=== PATIENT | female | born 1995 | race African-American/Black ===

== ENCOUNTER 2019-04-09 21:28 | Emergency (ER) | payer BC, OTHER ==
[2019-04-09] MEDS ORDERED: KETOROLAC 30 MG/ML INJ ONE (22:49)
--- NOTE | 2019-04-09 23:20 | EDPHYS ---
Physician Documentation [facility] Name: Cherry Mar Age: 23 yrs Sex: Female : 1995 Arrival Date: 04/09/2019 Time: 21:41 Bed 23 Private MD: ED Physician Mark Anthony Suárez HPI: 04/09 22:36 This 23 yrs old Black Female presents to ER via Ambulatory with complaints of Cough, jr8 Chest Pain, Headache. 22:36 The patient or guardian reports cough, that is intermittent, described as mild, with jr8 productive sputum, that is yellow. Onset: The symptoms/episode began/occurred gradually, 3 week(s) ago, and became worse and became persistent. Severity of symptoms: At their worst the symptoms were mild, in the emergency department the symptoms are unchanged. Modifying factors: The symptoms are alleviated by nothing, the symptoms are aggravated by nothing. Associated signs and symptoms: Pertinent positives: chest pain, back pain, body aches. The patient has not experienced similar symptoms in the past. The patient has not recently seen a physician. 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 - Social history:: Smoking status: Patient/guardian denies using tobacco. - Ebola Screening: : No symptoms or risks identified at this time. ROS: 22:36 Eyes: Negative for injury, pain, redness, and discharge, ENT: Negative for injury, jr8 pain, and discharge, Neck: Negative for injury, pain, and swelling, Abdomen/GI: Negative for abdominal pain, nausea, vomiting, diarrhea, and constipation, MS/Extremity: Negative for injury and deformity, Skin: Negative for injury, rash, and discoloration, Neuro: Negative for headache, weakness, numbness, tingling, and seizure. 22:36 Cardiovascular: Positive for chest pain, Negative for edema, orthopnea, palpitations, paroxysmal nocturnal dyspnea. 22:36 Respiratory: Positive for cough, with yellow sputum, Negative for dyspnea on exertion, shortness of breath, wheezing. 22:36 Back: Positive for pain at rest, pain with movement, of the upper back . Exam: 22:36 Eyes: Pupils equal round and reactive to light, extra-ocular motions intact. Lids and jr8 lashes normal. Conjunctiva and sclera are non-icteric and not injected. Cornea within normal limits. Periorbital areas with no swelling, redness, or edema. ENT: Nares patent. No nasal discharge, no septal abnormalities noted. Tympanic membranes are normal and external auditory canals are clear. Oropharynx with no redness, swelling, or masses, exudates, or evidence of obstruction, uvula midline. Mucous membranes moist. Neck: Trachea midline, no thyromegaly or masses palpated, and no cervical lymphadenopathy. Supple, full range of motion without nuchal rigidity, or vertebral point tenderness. No Meningismus. Cardiovascular: Regular rate and rhythm with a normal S1 and S2. No gallops, murmurs, or rubs. Normal PMI, no JVD. No pulse deficits. Respiratory: Lungs have equal breath sounds bilaterally, clear to auscultation and percussion. No rales, rhonchi or wheezes noted. No increased work of breathing, no retractions or nasal flaring. Abdomen/GI: Soft, non-tender, with normal bowel sounds. No distension or tympany. No guarding or rebound. No evidence of tenderness throughout. Skin: Warm, dry with normal turgor. Normal color with no rashes, no lesions, and no evidence of cellulitis. MS/ Extremity: Pulses equal, no cyanosis. Neurovascular intact. Full, normal range of motion. Neuro: Awake and alert, GCS 15, oriented to person, place, time, and situation. Cranial nerves II-XII grossly intact. Motor strength 5/5 in all extremities. Sensory grossly intact. Cerebellar exam normal. Normal gait. 22:36 Chest/axilla: Inspection: normal, Palpation: tenderness, that is mild, of the anterior aspect of right upper chest and anterior aspect of left upper chest. 22:36 Back: pain, that is mild, of the left scapular area, right scapular area, left subscapular area and right subscapular area. Vital Signs: 21:56 BP 110 / 81; Pulse 102; Resp 19; Temp 99.9; Pulse Ox 100% on R/A; Weight 69.4 kg; ea Height 5 ft. 4 in. (162.56 cm); 23:27 BP 121 / 80; Pulse 83; Resp 18; Temp 99.4; Pulse Ox 99% ; rv 21:56 Body Mass Index 26.26 (69.40 kg, 162.56 cm) ea MDM: 22:07 Patient medically screened. jr8 23:17 Data reviewed: vital signs, nurses notes, lab test result(s), radiologic studies, plain jr8 films. Data interpreted: Pulse oximetry: on room air is 100 %. Interpretation: normal. Test interpretation: by ED physician or midlevel provider: plain radiologic studies, Right upper lobe and left lower lobe pneumonia present on CXR. No osseous or cardiac abnormality noted . Counseling: I had a detailed discussion with the patient and/or guardian regarding: the historical points, exam findings, and any diagnostic results supporting the discharge/admit diagnosis, lab results, radiology results, the need for outpatient follow up, a family practitioner, to return to the emergency department if symptoms worsen or persist or if there are any questions or concerns that arise at home. ED course: Close return precautions and f/u discussed with patient along with rest, fluids, and abx. . 04/09 22:27 Order name: Influenza Screen (a \T\ B); Complete Time: 23:24 jr8 04/09 22:27 Order name: XRAY Chest (1 view) [facility] Administered Medications: 22:39 Drug: TORadol - Ketorolac 15 mg Route: IM; Site: right deltoid; rv 23:27 Follow up: Response: Pain is decreased rv 23:27 Drug: Zithromax 500 mg Route: PO; rv 23:27 Follow up: Response: Medication administered at discharge. rv Disposition: 04/10 00:55 Co-signature as Attending Physician, Mark Anthony Suárez MD I agree with the assessment and wa plan of care. Disposition: 04/09/19 23:19 Discharged to Home. Impression: Pneumonia due to other specified bacteria, Pleurisy. - Condition is Stable. - Discharge Instructions: Pleurisy, Community-Acquired Pneumonia, Adult. - Prescriptions for Ibuprofen 800 mg Oral Tablet - take 1 tablet by ORAL route every 12 hours As needed take with food; 20 tablet. Prednisone 20 mg Oral Tablet - take 1 tablet by ORAL route once daily for 5 days; 5 tablet. Zithromax Z- Michael 250 mg Oral Tablet - take 1 tablet by ORAL route as directed for 5 days Day 1 - take two (2) tablets one time. Day 2, 3, 4 , 5 take one (1) tablet once daily.; 6 tablet. Guaifenesin AC 10- 100 mg/5 mL Oral Liquid - take 10 milliliter by ORAL route every 4 hours As needed; 240 milliliter. - Medication Reconciliation Form, Thank You Letter, Antibiotic Education, Prescription Opioid Use form. - Follow up: Thelma James MD; When: 48 Hours; Reason: Recheck today's complaints, Continuance of care, Re-evaluation by your physician. - Problem is new. - Symptoms have improved. Signatures: Dispatcher [employer] EDMS Jonathan Emery PA PA jr8 Isadora Schwartz RN RN Mark Anthony Hilton MD MD wa Vicente, Ronaldo, RN RN rv Corrections: (The following items were deleted from the chart) 04/09 23:32 23:19 04/09/2019 23:19 Discharged to Home. Impression: Pneumonia due to other specified rv bacteria; Pleurisy. Condition is Stable. Forms are Medication Reconciliation Form, Thank You Letter, Antibiotic Education, Prescription Opioid Use. Follow up: Thelma James; When: 48 Hours; Reason: Recheck today's complaints, Continuance of care, Re-evaluation by your physician. Problem is new. Symptoms have improved. jr8
--- NOTE | 2019-04-09 23:20 | ER ---
Nurse's Notes [facility] Name: Cherry Mar Age: 23 yrs Sex: Female : 1995 Arrival Date: 04/09/2019 Time: 21:41 Bed 23 Private MD: Diagnosis: Pneumonia due to other specified bacteria;Pleurisy Presentation: 04/09 21:51 Presenting complaint: Patient states: She has been having cough for the past two weeks, ea pt reports headache, productive cough with yellow sputum that started yesterday. 21:59 Transition of care: patient was not received from another setting of care. Onset of ea symptoms was April 09, 2019. Risk Assessment: Do you want to hurt yourself or someone else? Patient reports no desire to harm self or others. Initial Sepsis Screen: Does the patient meet any 2 criteria? HR > 90 bpm. Yes Does the patient have a suspected source of infection? Yes: Productive cough/pneumonia. Care prior to arrival: None. 21:59 Method Of Arrival: Ambulatory ea 21:59 Acuity: RUFUS 3 ea Triage Assessment: 21:57 General: Appears uncomfortable, Behavior is calm, cooperative, appropriate for age. ea Pain: Complains of pain in chest Aggravated by cough. Neuro: Level of Consciousness is awake, alert, obeys commands, Oriented to person, place, time, situation. Cardiovascular: Patient's skin is warm and dry. Respiratory: Airway is patent Respiratory effort is even, unlabored, Respiratory pattern is regular, symmetrical, Parent/caregiver reports the patient having pain with cough. 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 - Social history:: Smoking status: Patient/guardian denies using tobacco. - Ebola Screening: : No symptoms or risks identified at this time. Screenin:57 Abuse screen: Denies threats or abuse. Nutritional screening: No deficits noted. ea Tuberculosis screening: No symptoms or risk factors identified. Fall Risk None identified. Assessment: 22:41 General: Appears in no apparent distress. comfortable, Behavior is calm, cooperative. rv Pain: Complains of pain in back Pain does not radiate. Pain began gradually. Neuro: Level of Consciousness is awake, alert, obeys commands, Oriented to person, place, time, situation. Cardiovascular: Capillary refill < 3 seconds Patient's skin is warm and dry. Respiratory: Airway is patent. GI: No signs and/or symptoms were reported involving the gastrointestinal system. : No signs and/or symptoms were reported regarding the genitourinary system. EENT: No signs and/or symptoms were reported regarding the EENT system. Derm: Skin is intact. Musculoskeletal: No signs and/or symptoms reported regarding the musculoskeletal system. Vital Signs: 21:56 BP 110 / 81; Pulse 102; Resp 19; Temp 99.9; Pulse Ox 100% on R/A; Weight 69.4 kg; ea Height 5 ft. 4 in. (162.56 cm); 23:27 BP 121 / 80; Pulse 83; Resp 18; Temp 99.4; Pulse Ox 99% ; rv 21:56 Body Mass Index 26.26 (69.40 kg, 162.56 cm) ea ED Course: 21:41 Patient arrived in ED. ds1 21:56 Patient has correct armband on for positive identification. Placed in gown. Bed in low ea position. Call light in reach. Pulse ox on. NIBP on. 21:59 Triage completed. ea 22:00 Arm band placed on left wrist. Patient placed in an exam room, on a stretcher, on pulse rv oximetry, Patient notified of wait time. 22:07 Jonathan Emery PA is PHCP. jr8 22:07 Mark Anthony Suárez MD is Attending Physician. jr8 22:29 Julián Archer RN is Primary Nurse. rv 22:43 No provider procedures requiring assistance completed. Patient did not have IV access rv during this emergency room visit. Patient maintains SpO2 saturation greater than 95% on room air. 22:50 XRAY Chest (1 view) In Process Unspecified. EDMS 23:19 Thelma James MD is Referral Physician. jr8 Administered Medications: 22:39 Drug: TORadol - Ketorolac 15 mg Route: IM; Site: right deltoid; rv 23:27 Follow up: Response: Pain is decreased rv 23:27 Drug: Zithromax 500 mg Route: PO; rv 23:27 Follow up: Response: Medication administered at discharge. rv Outcome: 23:19 Discharge ordered by MD. murillo 23:32 Discharged to home ambulatory. rv 23:32 Condition: good 23:32 Discharge instructions given to patient, Instructed on discharge instructions, follow up and referral plans. medication usage, Demonstrated understanding of instructions, follow-up care, medications, Prescriptions given X 4. 23:32 Patient left the ED. rv Signatures: Dispatcher [employer] EDUT ZuñigaAdri dsJonathan Berkowitz PA PA jr8 Antunez, Elena, RN RN Julián Benitez, RN RN rv Corrections: (The following items were deleted from the chart) 22:02 21:56 BP 110 / 81; Pulse 102bpm; Resp 19bpm; Pulse Ox 100% RA; Temp 98.9F; ea ea
[2019-04-09] MEDS ORDERED: AZITHROMYCIN 250 MG TAB ONE (23:36)
--- NOTE | 2019-04-10 08:30 | RAD REPORT ---
EXAM DESCRIPTION: RAD - Chest Single View - 04/09/2019 10:49 pm CLINICAL HISTORY: CHEST PAIN Chest pain. COMPARISON: No comparisons FINDINGS: Portable technique limits examination quality. Moderate right upper lobe pulmonary consolidation is seen likely bronchopneumonia. Similar small infi ltrate is developing as well in the left lower lobe. The heart is normal in size. No displaced fractu res. IMPRESSION: Moderate right upper lobe bronchopneumonia. Early pneumonia also developing in the left lower lobe.
[2019-04-10 12:29] VITALS: BP 121/80; TEMP 99.4; O2SAT 99
== END 2019-04-09 23:32 | disposition home or self-care (01) ==
LOC: ER 21:28
DX: J15.8 Pneumonia due to other specified bacteria (principal); R09.1 Pleurisy
CPT/HCPCS: 71045; 87804; 96372; 99284

== ENCOUNTER 2019-04-24 20:43 | Emergency (ER) | payer BC ==
--- NOTE | 2019-04-24 22:29 | EDPHYS ---
Physician Documentation [facility] Name: Cherry Mar Age: 23 yrs Sex: Female : 1995 Arrival Date: 04/24/2019 Time: 20:48 Bed 15 Private MD: ED Physician Yves Miller HPI: 04/24 22:21 This 23 yrs old Black Female presents to ER via Ambulatory with complaints of Chest rn pain. 22:21 The patient or guardian reports chest pain that is located primarily in the anterior rn chest wall. The pain does not radiate. Associated signs and symptoms: Pertinent positives: None. Pertinent negatives: cough, diaphoresis, near syncope, palpitations, recent travel, shortness of breath, syncope. The chest pain is described as sharp, stabbing. Duration: The patient or guardian reports multiple episodes, that are intermittent. Modifying factors: The symptoms are alleviated by nothing. the symptoms are aggravated by nothing. Severity of pain: At its worst the pain was mild in the emergency department the pain is unchanged. The patient has experienced a previous episode. Reports chest pain, central/anterior chest, non-radiating, reports finished abx for double pneumonia, no longer coughing, no hemoptysis, no fever. Reports wanted to make sure that pneumonia not returning. No trauma. No hx of smoking, no trauma, no famhx of early cardiac problems. . Historical: - Allergies: 21:20 No Known Allergies; ch - PMHx: 21:20 Pneumonia; ch - PSHx: 21:20 ; ch - Immunization history:: Adult Immunizations up to date. - Social history:: Smoking status: Patient/guardian denies using tobacco. - Ebola Screening: : Patient negative for fever greater than or equal to 101.5 degrees Fahrenheit, and additional compatible Ebola Virus Disease symptoms Patient denies exposure to infectious person Patient denies travel to an Ebola-affected area in the 21 days before illness onset No symptoms or risks identified at this time. - Family history:: not pertinent. - Hospitalizations: : No recent hospitalization is reported. ROS: 22:21 Constitutional: Negative for fever, chills, and weight loss, Eyes: Negative for injury, rn pain, redness, and discharge, Neck: Negative for injury, pain, and swelling, Cardiovascular: + chest pain Respiratory: Negative for cough/sob. Abdomen/GI: Negative for abdominal pain, nausea, vomiting, diarrhea, and constipation, MS/Extremity: Negative for injury and deformity, Skin: Negative for injury, rash, and discoloration, Neuro: Negative for headache, weakness, numbness, tingling, and seizure. Exam: 22:21 Constitutional: This is a well developed, well nourished patient who is awake, alert, rn and in no acute distress. Head/Face: Normocephalic, atraumatic. ENT: MMM, no stridor Neck: No JVD Cardiovascular: Regular rate and rhythm. No pulse deficits. Respiratory: Lungs have equal breath sounds bilaterally, clear to auscultation. No increased work of breathing, no retractions or nasal flaring. MS/ Extremity: Pulses equal, no cyanosis. Neurovascular intact. Full, normal range of motion. Equal circumference. Neuro: Awake and alert, GCS 15, oriented to person, place, time, and situation. Cranial nerves II-XII grossly intact. Motor strength 5/5 in all extremities. Sensory grossly intact. Cerebellar exam normal. Normal gait. 22:26 ECG was reviewed by the Attending Physician. rn Vital Signs: 21:20 BP 114 / 62; Pulse 84; Resp 18; Pulse Ox 100% on R/A; Weight 77.11 kg; Height 5 ft. 6 ch in. (167.64 cm); Pain 6/10; 22:00 BP 113 / 67; Pulse 65; Resp 16; Pulse Ox 100% on R/A; jb4 21:20 Body Mass Index 27.44 (77.11 kg, 167.64 cm) MDM: 20:54 Patient medically screened. rn 22:21 Differential diagnosis: acute pericarditis, costochondritis, pleurisy, pneumonia, rn pneumothorax. Data reviewed: vital signs, nurses notes, EKG, radiologic studies, plain films, and as a result, I will discharge patient. Test interpretation: by ED physician or midlevel provider: ECG, plain radiologic studies, CXR with improved aeration and resolution of previous bronchopneumonia. Counseling: I had a detailed discussion with the patient and/or guardian regarding: the historical points, exam findings, and any diagnostic results supporting the discharge/admit diagnosis, radiology results, the need for outpatient follow up, to return to the emergency department if symptoms worsen or persist or if there are any questions or concerns that arise at home. Special discussion: I discussed with the patient/guardian in detail that at this point there is no indication for admission to the hospital. It is understood, however, that if the symptoms persist or worsen the patient needs to return immediately for re-evaluation. 04/24 21:22 Order name: XRAY Chest Pa And Lat (2 Views) rn 04/24 21: Order name: EKG; Complete Time: :24 rn 04/24 21: Order name: EKG - Nurse/Tech; Complete Time: :31 rn EC: Rate is 84 beats/min. Rhythm is regular. QRS [place] is Normal. AL interval is shortened rn at 106 msec. QRS interval is normal. QT interval is normal. No Q waves. T waves are Normal. No ST changes noted. Clinical impression: No evidence of ischemia and Normal Sinus rhythm. Interpreted by me. Administered Medications: 20:58 CANCELLED (Physician Discretion): SOLU-Medrol 125 mg IVP once ak1 20:59 CANCELLED (Inappropriate at this time): Xopenex (3) 1.25 mg Inhalation once ak1 20:59 CANCELLED (Inappropriate at this time): AtroVENT Aerosol 0.5 mg Inhalation once ak1 Disposition: 04/24/19 22:28 Discharged to Home. Impression: Pleurisy. - Condition is Stable. - Discharge Instructions: Pleurisy. - Medication Reconciliation Form, Thank You Letter, Antibiotic Education, Prescription Opioid Use form. - Follow up: Private Physician; When: As needed; Reason: Recheck today's complaints, Re-evaluation by your physician. - Problem is an ongoing problem. - Symptoms have improved. Signatures: Dispatcher [employer] EDMS Sarai Ferrera RN Yves Hook ch, MD MD rn Bryson, James, RN RN jb4 Krenek, Amber RN ak1 Corrections: (The following items were deleted from the chart) 20:58 20:56 IV Saline Lock ordered. rn ak1 20:58 20:56 SOLU-Medrol 125 mg IVP once ordered. rn ak1 20:59 20:56 Xopenex (3) 1.25 mg Inhalation once ordered. rn ak1 20:59 20:56 AtroVENT Aerosol 0.5 mg Inhalation once ordered. rn ak1 21:04 20:57 Chest Single View+RAD.RAD.BRZ ordered. EDUT EDMS 22:40 22:28 04/24/2019 22:28 Discharged to Home. Impression: Pleurisy. Condition is Stable. jb4 Forms are Medication Reconciliation Form, Thank You Letter, Antibiotic Education, Prescription Opioid Use. Follow up: Private Physician; When: As needed; Reason: Recheck today's complaints, Re-evaluation by your physician. Problem is an ongoing problem. Symptoms have improved. rn
--- NOTE | 2019-04-24 22:29 | ER ---
Nurse's Notes [facility] Name: Cherry Mar Age: 23 yrs Sex: Female : 1995 Arrival Date: 04/24/2019 Time: 20:48 Bed 15 Private MD: Diagnosis: Pleurisy Presentation: 04/24 21:19 Presenting complaint: Patient states: I think my pneumonia never went away. I am having ch chest pains and SOB. Transition of care: patient was not received from another setting of care. Onset of symptoms was March 2019. Risk Assessment: Do you want to hurt yourself or someone else? Patient reports no desire to harm self or others. Initial Sepsis Screen: Does the patient meet any 2 criteria? No. Patient's initial sepsis screen is negative. Does the patient have a suspected source of infection? No. Patient's initial sepsis screen is negative. Care prior to arrival: None. 21:19 Method Of Arrival: Ambulatory 21:19 Acuity: RUFUS 3 ch Triage Assessment: 21:20 General: Appears in no apparent distress. uncomfortable, Behavior is calm, cooperative, ch appropriate for age. Pain: Complains of pain in chest. Historical: - Allergies: 21:20 No Known Allergies; ch - PMHx: 21:20 Pneumonia; ch - PSHx: 21:20 ; ch - Immunization history:: Adult Immunizations up to date. - Social history:: Smoking status: Patient/guardian denies using tobacco. - Ebola Screening: : Patient negative for fever greater than or equal to 101.5 degrees Fahrenheit, and additional compatible Ebola Virus Disease symptoms Patient denies exposure to infectious person Patient denies travel to an Ebola-affected area in the 21 days before illness onset No symptoms or risks identified at this time. - Family history:: not pertinent. - Hospitalizations: : No recent hospitalization is reported. Screenin:58 Abuse screen: Denies threats or abuse. Nutritional screening: No deficits noted. jb4 Tuberculosis screening: No symptoms or risk factors identified. Fall Risk None identified. Assessment: 21:58 General: Appears in no apparent distress. comfortable, Behavior is calm, cooperative, jb4 appropriate for age. Pain: Complains of pain in chest Pain does not radiate. Pain currently is 3 out of 10 on a pain scale. Quality of pain is described as aching, Pain began 1 day ago. Neuro: Level of Consciousness is awake, alert, obeys commands, Oriented to person, place, time, situation. Cardiovascular: Patient's skin is warm and dry. Rhythm is sinus rhythm. Respiratory: Airway is patent Respiratory effort is even, unlabored, Respiratory pattern is regular, symmetrical, Breath sounds are clear bilaterally. GI: No signs and/or symptoms were reported involving the gastrointestinal system. : No signs and/or symptoms were reported regarding the genitourinary system. EENT: No signs and/or symptoms were reported regarding the EENT system. Derm: Skin is intact, Skin is dry, Skin is normal, Skin temperature is warm. Musculoskeletal: 22:39 Reassessment: Patient appears in no apparent distress at this time. Patient and/or jb4 family updated on plan of care and expected duration. Pain level reassessed. Patient is alert, oriented x 3, equal unlabored respirations, skin warm/dry/pink. Vital Signs: 21:20 BP 114 / 62; Pulse 84; Resp 18; Pulse Ox 100% on R/A; Weight 77.11 kg; Height 5 ft. 6 ch in. (167.64 cm); Pain 6/10; 22:00 BP 113 / 67; Pulse 65; Resp 16; Pulse Ox 100% on R/A; jb4 21:20 Body Mass Index 27.44 (77.11 kg, 167.64 cm) ED Course: 20:48 Patient arrived in ED. am2 20:54 Yves Miller MD is Attending Physician. rn 21:19 Jarrett Irvin RN is Primary Nurse. jb4 21:19 Triage completed. 21:20 Arm band placed on left wrist. Patient placed in an exam room, on a stretcher. 21:58 Patient has correct armband on for positive identification. Placed in gown. Bed in low jb4 position. Call light in reach. Side rails up X 1. Pulse ox on. NIBP on. 21:58 Patient maintains SpO2 saturation greater than 95% on room air. jb4 22:13 XRAY Chest Pa And Lat (2 Views) In Process Unspecified. EDMS 22:39 No provider procedures requiring assistance completed. Patient did not have IV access jb4 during this emergency room visit. Administered Medications: 20:58 CANCELLED (Physician Discretion): SOLU-Medrol 125 mg IVP once ak1 20:59 CANCELLED (Inappropriate at this time): Xopenex (3) 1.25 mg Inhalation once ak1 20:59 CANCELLED (Inappropriate at this time): AtroVENT Aerosol 0.5 mg Inhalation once ak1 Outcome: 22:28 Discharge ordered by . rn 22:40 Discharged to home ambulatory. jb4 22:40 Condition: stable 22:40 Discharge instructions given to patient, Instructed on discharge instructions, follow up and referral plans. Demonstrated understanding of instructions, follow-up care. 22:40 Patient left the ED. jb4 Signatures: Dispatcher [employer] EDMS Sarai Ferrera RN RN Yves Miller MD MD rn Bryson, James, RN RN jb4 Trudi Ellis Amber RN ak1
[2019-04-24 22:48] VITALS: O2SAT 100
[2019-04-24 22:49] VITALS: BP 113/67
--- NOTE | 2019-04-25 14:31 | EKG ---
Test Date: 2019-04-24 Test Time: 21:28:20 Spring Former Machine: SHER MEASUREMENT RESULTS: Intervals: Rate: 84 MA: 106 QRSD: 88 QT: 368 QTc: 434 Purlear: P: 68 MA: 106 QRS: 43 T: 27 INTERPRETIVE STATEMENTS: Sinus rhythm with short MA Otherwise normal ECG No previous ECG available for comparison Electronically Signed On 04-25-19 14:29:05 CDT by David Mallory
--- NOTE | 2019-04-25 15:32 | RAD REPORT ---
EXAM DESCRIPTION: Marybel Pa And Lat (2 Views)04/25/2019 11:43 am CLINICAL HISTORY: Cough COMPARISON: April 09, 2019 FINDINGS: Bilateral pulmonary opacities have significantly improved The heart is normal size IMPRESSION: Significant improvement in bilateral pneumonia
== END 2019-04-24 22:40 | disposition home or self-care (01) ==
LOC: ER 20:43
DX: R09.1 Pleurisy (principal)
CPT/HCPCS: 71046; 93005; 99284

== ENCOUNTER 2019-06-06 09:38 | Emergency (ER) | payer BC ==
--- NOTE | 2019-06-06 11:21 | RAD REPORT ---
EXAM DESCRIPTION: RAD - Chest Pa And Lat (2 Views) - 06/06/2019 10:56 am CLINICAL HISTORY: cough, shortness of breath Chest pain. COMPARISON: Chest Pa And Lat (2 Views) dated 04/24/2019; Chest Single View dated 04/09/2019 FINDINGS: Ill-defined opacities are present in the left upper lobe compatible with pneumonia. The he art is normal in size. No displaced fractures. IMPRESSION: Left upper lobe pneumonia.
--- NOTE | 2019-06-06 11:42 | ER ---
Nurse's Notes [facility] Name: Cherry Mar Age: 23 yrs Sex: Female : 1995 Arrival Date: 06/06/2019 Time: 09:40 Bed 10 Private MD: Diagnosis: Pneumonia Presentation: 06/06 10:03 Presenting complaint: Patient states: Productive cough and chest congestion x 2-3 days, ph also reports pain in substernal area and back r/t cough and deep breathing, denies fever, N/V/D. Transition of care: patient was not received from another setting of care. Onset of symptoms was June 06, 2019. Risk Assessment: Do you want to hurt yourself or someone else? Patient reports no desire to harm self or others. Initial Sepsis Screen: Does the patient meet any 2 criteria? No. Patient's initial sepsis screen is negative. Does the patient have a suspected source of infection? No. Patient's initial sepsis screen is negative. Care prior to arrival: None. 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 - Social history:: Smoking status: Patient/guardian denies using tobacco. - Ebola Screening: : No symptoms or risks identified at this time. Screenin:20 Abuse screen: Denies threats or abuse. Denies injuries from another. Nutritional ph screening: No deficits noted. Tuberculosis screening: No symptoms or risk factors identified. Fall Risk None identified. Assessment: 10:18 General: Appears in no apparent distress. comfortable, slender, well groomed, Behavior ph is calm, cooperative, appropriate for age, Denies fever. Pain: Complains of pain in right clavicle, left clavicle and mid-sternal area Pain radiates to back Aggravated by " Coughing and deep breathing.". Neuro: Level of Consciousness is awake, alert, obeys commands, Oriented to person, place, time, situation. Cardiovascular: Capillary refill < 3 seconds in bilateral fingers Patient's skin is warm and dry. Respiratory: Reports cough that is productive, pain with cough pain with respiration Airway is patent Respiratory effort is even, unlabored, Respiratory pattern is regular, symmetrical, Breath sounds are coarse in mediastinum. GI: Patient currently denies abdominal pain, diarrhea, nausea, vomiting. Derm: Skin is intact, is healthy with good turgor, Skin is pink, warm \\T\\ dry. Musculoskeletal: Circulation, motion, and sensation intact. Range of motion: intact in all extremities. 12:01 Reassessment: Patient appears in no apparent distress at this time. Patient and/or iw family updated on plan of care and expected duration. Pain level reassessed. Patient is alert, oriented x 3, equal unlabored respirations, skin warm/dry/pink. Patient states feeling better. Patient states symptoms have improved. Vital Signs: 10:04 BP 117 / 81; Pulse 79; Resp 18; Temp 98.3; Pulse Ox 99% on R/A; Weight 70.31 kg; Height ph 5 ft. 4 in. (162.56 cm); 12:01 BP 116 / 84; Pulse 74; Resp 16; Temp 98.3; Pulse Ox 100% on R/A; iw 10:04 Body Mass Index 26.61 (70.31 kg, 162.56 cm) ph ED Course: 09:40 Patient arrived in ED. as 10:03 Taniya Deal, RN is Primary Nurse. ph 10:04 Triage completed. ph 10:05 Clay Stallings PA is PHCP. [facility] 10:05 Pankaj Metcalf MD is Attending Physician. [facility] 10:06 Arm band placed on Patient placed in an exam room, on a stretcher. ph 10:20 Patient has correct armband on for positive identification. Call light in reach. Door ph closed. Noise minimized. Warm blanket given. 10:54 X-ray completed. Patient tolerated procedure well. Patient moved back from radiology. mh1 10:55 Chest Pa And Lat (2 Views) XRAY In Process Unspecified. EDMS 11:11 Flu and/or RSV swab sent to lab. Strep swab sent to lab. 5 11:12 Flu Sent. 5 12:01 No provider procedures requiring assistance completed. Patient did not have IV access iw during this emergency room visit. Administered Medications: No medications were administered Outcome: 11:42 Discharge ordered by . [facility] 12:01 Discharged to home ambulatory, with family. iw 12:01 Condition: good 12:01 Discharge instructions given to patient, Instructed on discharge instructions, follow up and referral plans. medication usage, Demonstrated understanding of instructions, follow-up care, medications, Prescriptions given X 3. 12:02 Patient left the ED. Signatures: Dispatcher [employer] EDMS Clay Stallings PA PA jmm Harvey, Martha 1 Odette Christian RN RN Lizzy Pitts Irene, RN RN Taniya Deal RN RN Deborah Pitts [facility] Corrections: (The following items were deleted from the chart) 10:18 10:00 Presenting complaint: Patient states: Congestion and productive cough x 3 days, fc denies N/V/D or fever fc
--- NOTE | 2019-06-06 11:43 | EDPHYS ---
Physician Documentation [facility] Name: Cherry Mar Age: 23 yrs Sex: Female : 1995 Arrival Date: 06/06/2019 Time: 09:40 Bed 10 Private MD: ED Physician Pankaj Metcalf HPI: 06/06 10:18 This 23 yrs old Black Female presents to ER via Ambulatory with complaints of Chest jmm Congestion, Cough. 10:18 The patient or guardian reports cough. Onset: The symptoms/episode began/occurred jmm gradually, 3 day(s) ago. Modifying factors: The symptoms are alleviated by nothing. the symptoms are aggravated by nothing. Associated signs and symptoms: Pertinent positives: chest pain, with cough, sore throat. The patient has experienced a previous episode. This is a 23 year old female with no chronic medical conditions that presents to the ED with complaints of cough, congestion, sore throat beginning this past Monday. Patient states 1 month ago being diagnosed with pneumonia. . 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 - Social history:: Smoking status: Patient/guardian denies using tobacco. - Ebola Screening: : No symptoms or risks identified at this time. ROS: 10:18 Constitutional: Negative for fever, chills, and weight loss. jmm 10:18 ENT: Positive for sinus congestion, sore throat. 10:18 Cardiovascular: Positive for chest pain, with cough. 10:18 Respiratory: Positive for cough. 10:18 All other systems are negative. Exam: 10:18 Constitutional: This is a well developed, well nourished patient who is awake, alert, jmm and in no acute distress. Head/Face: atraumatic. Eyes: EOMI, no conjunctival erythema appreciated 10:18 Chest/axilla: Normal chest wall appearance and motion. 10:18 Abdomen/GI: Non distended, soft Back: Normal ROM Skin: General appearance color normal MS/ Extremity: Moves all extremities, no obvious deformities appreciated, no edema noted to the lower extremities Neuro: Awake and alert, normal gait Psych: Behavior is normal, Mood is normal, Patient is cooperative and pleasant 10:18 ENT: TM's: are normal, Posterior pharynx: is normal. 10:18 Cardiovascular: Rate: normal, Rhythm: regular. 10:18 Respiratory: the patient does not display signs of respiratory distress, Respirations: normal, Breath sounds: are clear throughout. 10:18 Abdomen/GI: Vital Signs: 10:04 BP 117 / 81; Pulse 79; Resp 18; Temp 98.3; Pulse Ox 99% on R/A; Weight 70.31 kg; Height ph 5 ft. 4 in. (162.56 cm); 12:01 BP 116 / 84; Pulse 74; Resp 16; Temp 98.3; Pulse Ox 100% on R/A; iw 10:04 Body Mass Index 26.61 (70.31 kg, 162.56 cm) ph MDM: 10:18 Patient medically screened. [facility] 11:40 Data reviewed: vital signs, nurses notes. Counseling: I had a detailed discussion with rommel the patient and/or guardian regarding: the historical points, exam findings, and any diagnostic results supporting the discharge/admit diagnosis, lab results, radiology results, the need for outpatient follow up, to return to the emergency department if symptoms worsen or persist or if there are any questions or concerns that arise at home. ED course: Patient is alert and non toxic in appearance in the ED. Patient prescribed oral antibiotics. Patient advised to follow up with pcp and otherwise given strict return precautions. Patient understood and agrees with the plan of care. . 06/06 10:19 Order name: Strep; Complete Time: 11:26 [facility] 06/06 10:19 Order name: Flu; Complete Time: 11:26 [facility] 06/06 10:19 Order name: Chest Pa And Lat (2 Views) XRAY; Complete Time: 11:26 [facility] 06/06 10:20 Order name: EKG - Nurse/Tech; Complete Time: 11:06 [facility] 06/06 11:22 Order name: Throat Culture EDMS Administered Medications: No medications were administered Disposition: 19:01 Co-signature as Attending Physician, Pankaj Metcalf MD I agree with the assessment and kdr plan of care. Disposition: 06/06/19 11:42 Discharged to Home. Impression: Pneumonia. - Condition is Stable. - Discharge Instructions: Community-Acquired Pneumonia, Adult. - Prescriptions for Levaquin 750 mg Oral Tablet - take 1 tablet by ORAL route once daily for 10 days; 10 tablet. Bactrim DS 800- 160 mg Oral Tablet - take 1 tablet by ORAL route every 12 hours for 10 days; 20 tablet. benzonatate 200 mg Oral Capsule - take 1 capsule by ORAL route 3 times per day as needed; 30 capsule. - Medication Reconciliation Form, Thank You Letter, Antibiotic Education, Prescription Opioid Use, Work release form form. - Follow up: Private Physician; When: 2 - 3 days; Reason: Recheck today's complaints, Continuance of care, Re-evaluation by your physician. Signatures: Dispatcher [employer] EDMS Pankaj Metcalf MD MD kdr Clay Stallings PA PA jmm Williams, Irene, ANA RN iw Taniya Deal RN RN ph Corrections: (The following items were deleted from the chart) 12:02 11:42 06/06/2019 11:42 Discharged to Home. Impression: Pneumonia. Condition is Stable. iw Forms are Medication Reconciliation Form, Thank You Letter, Antibiotic Education, Prescription Opioid Use. Follow up: Private Physician; When: 2 - 3 days; Reason: Recheck today's complaints, Continuance of care, Re-evaluation by your physician. rommel
[2019-06-06 12:22] VITALS: TEMP 98.3
[2019-06-06 12:23] VITALS: BP 116/84; O2SAT 100
--- NOTE | 2019-06-07 15:04 | EKG ---
Test Date: 2019-06-06 Test Time: 11:07:30 Room Service Runner: ALE MEASUREMENT RESULTS: Intervals: Rate: 58 TN: 136 QRSD: 88 QT: 410 QTc: 402 Hawi: P: 48 TN: 136 QRS: 60 T: 35 INTERPRETIVE STATEMENTS: Sinus bradycardia Otherwise normal ECG Compared to ECG 04/24/2019 21:28:20 Sinus rhythm no longer present Short TN interval no longer present Electronically Signed On 06-07-19 15:03:23 CDT by Atif Jacques
== END 2019-06-06 12:02 | disposition home or self-care (01) ==
LOC: ER 09:38
DX: J18.9 Pneumonia, unspecified organism (principal)
CPT/HCPCS: 71046; 87070; 87081; 87804; 93005; 99283

== ENCOUNTER 2019-07-03 09:17 | Emergency (ER) | payer BC ==
[2019-07-03] MEDS ORDERED: NA CHLORIDE 0.9% 500 ML ONE (09:46)
[2019-07-03 10:12] LABS: Basophils % 0.7 % (0-1.3); Hematocrit 32.8 % (36.0-45.0); Lymphocytes % 33.4 % (15.3-44.8); RBC Red Blood Cell Count 4.21 M/uL (3.86-4.86)
--- NOTE | 2019-07-03 10:19 | RAD REPORT ---
EXAM DESCRIPTION: Marybel Alfaro And Brit (2 Views)07/03/2019 9:51 am CLINICAL HISTORY: Cough COMPARISON: June 06, 2019 FINDINGS: left upper lobe alveolar opacities have mildly improved Right lung appears clear Heart is normal size IMPRESSION: Mild improvement in a [id number] left upper lobe pneumonia
[2019-07-03 10:34] LABS: BUN Blood Urea Nitrogen 17 mg/dL (7-18); Bicarbonate 28 mmol/L (21-32); Glucose Level 73 mg/dL (74-106); Potassium 3.5 mmol/L (3.5-5.1); Sodium Level 142 mmol/L (136-145)
[2019-07-03 10:35] LABS: ALT/SGPT 23 U/L (12-78); AST/SGOT 22 U/L (15-37); Albumin 3.8 g/dL (3.4-5.0); Alkaline Phosphatase 71 U/L (45-117); Bilirubin Direct 0.1 mg/dL (0-0.2); Bilirubin Total 0.4 mg/dL (0.2-1.0); Magnesium 2.3 mg/dL (1.8-2.4); NT PRO-BNP 18 pg/mL (<125); Protein, Total 8.1 g/dL (6.4-8.2); Troponin (Emerg Dept Use Only) < 0.02 ng/mL (0.0-0.045)
--- NOTE | 2019-07-03 10:46 | ER ---
Nurse's Notes [facility] Name: Cherry Mar Age: 23 yrs Sex: Female : 1995 Arrival Date: 07/03/2019 Time: 09:18 Bed 20 Private MD: Diagnosis: Dyspnea;Pneumonia due to other specified bacteria Presentation: 07/03 09:29 Presenting complaint: Productive cough, pain with cough, subjective fever, and malaise hb x 2 weeks. Transition of care: patient was not received from another setting of care. Onset of symptoms was July 03, 2019. Risk Assessment: Do you want to hurt yourself or someone else? Patient reports no desire to harm self or others. Initial Sepsis Screen: Does the patient meet any 2 criteria? No. Patient's initial sepsis screen is negative. Does the patient have a suspected source of infection? No. Patient's initial sepsis screen is negative. Care prior to arrival: None. 09:29 Method Of Arrival: Ambulatory hb 09:29 Acuity: RUFUS 3 hb Triage Assessment: :30 General: Appears in no apparent distress. Behavior is calm, cooperative. Pain: Pain hb currently is 3 out of 10 on a pain scale. EENT: No signs and/or symptoms were reported regarding the EENT system. Neuro: Level of Consciousness is awake, alert, obeys commands, Oriented to person, place, time, situation. Cardiovascular: Capillary refill < 3 seconds Patient's skin is warm and dry. Respiratory: Reports shortness of breath on exertion pain with cough Airway is patent Respiratory effort is even, unlabored, Respiratory pattern is regular, symmetrical, Breath sounds are clear bilaterally. Onset: The symptoms/episode began/occurred 2 weeks, the patient has mild shortness of breath. GI: No signs and/or symptoms were reported involving the gastrointestinal system. : No signs and/or symptoms were reported regarding the genitourinary system. Derm: Skin is intact, is healthy with good turgor, Skin is pink, warm \T\ dry. Musculoskeletal: No signs and/or symptoms reported regarding the musculoskeletal system. Historical: - Allergies: 09:30 No Known Allergies; hb - Home Meds: :30 None [Active]; hb - PMHx: :30 Pneumonia; hb - PSHx: :30 ; hb - Immunization history:: Adult Immunizations up to date. - Social history:: Smoking status: Patient/guardian denies using tobacco. - Ebola Screening: : No symptoms or risks identified at this time. - Family history:: not pertinent. Screenin:45 Abuse screen: Denies threats or abuse. Denies injuries from another. Nutritional hb screening: No deficits noted. Tuberculosis screening: No symptoms or risk factors identified. Fall Risk None identified. Assessment: 09:31 General: see triage assessment. hb 09:34 Reassessment: Pt to radiology. hb 09:50 Reassessment: Pt returned from radiology. hb 10:35 Reassessment: Patient appears in no apparent distress at this time. Patient and/or hb family updated on plan of care and expected duration. Pain level reassessed. Patient is alert, oriented x 3, equal unlabored respirations, skin warm/dry/pink. 11:30 Reassessment: Patient appears in no apparent distress at this time. Patient and/or hb family updated on plan of care and expected duration. Pain level reassessed. Patient is alert, oriented x 3, equal unlabored respirations, skin warm/dry/pink. 12:00 Reassessment: Discharge pending completion of IV ABX. hb 12:30 Reassessment: Patient appears in no apparent distress at this time. No changes from hb previously documented assessment. Patient and/or family updated on plan of care and expected duration. Pain level reassessed. Patient is alert, oriented x 3, equal unlabored respirations, skin warm/dry/pink. 13:24 Reassessment: Patient appears in no apparent distress at this time. No changes from hb previously documented assessment. Patient and/or family updated on plan of care and expected duration. Pain level reassessed. Patient is alert, oriented x 3, equal unlabored respirations, skin warm/dry/pink. Vital Signs: 09:30 BP 117 / 67; Pulse 62; Resp 16; Temp 97.4; Pulse Ox 100% on R/A; Weight 61.23 kg; hb Height 5 ft. 8 in. (172.72 cm); Pain 3/10; 10:30 BP 109 / 78; Pulse 64; Resp 15; Pulse Ox 100% on R/A; hb 11:30 BP 124 / 74; Pulse 62; Resp 14; Pulse Ox 100% on R/A; hb 12:30 BP 122 / 70; Pulse 69; Resp 16; Pulse Ox 100% on R/A; hb 13:15 BP 108 / 72; Pulse 66; Resp 15; Pulse Ox 100% on R/A; hb 09:30 Body Mass Index 20.53 (61.23 kg, 172.72 cm) hb ED Course: 09:18 Patient arrived in ED. rg4 09:29 Luz Márquez, RN is Primary Nurse. hb 09:30 Triage completed. hb 09:30 Riki Castro MD is Attending Physician. gabriel 09:30 Arm band placed on. hb 09:35 Patient moved to radiology via wheelchair. jb2 09:47 Chest Pa And Lat (2 Views) XRAY In Process Unspecified. EDMS 09:47 X-ray completed. Patient tolerated procedure well. Patient moved back from radiology. jb2 09:55 Patient has correct armband on for positive identification. Placed in gown. Bed in low hb position. Call light in reach. Side rails up X 1. 09:56 Missed attempt(s): 22 gauge in right antecubital area. Bleeding controlled, band aid hb applied, catheter tip intact. 10:02 Inserted saline lock: 22 gauge in left antecubital area, using aseptic technique. Blood hb collected. 10:28 EKG done, by technician inventory specialist. reviewed by Riki Castro MD. dt2 10:44 Jose Camp MD is Referral Physician. gabriel 13:54 No provider procedures requiring assistance completed. IV discontinued, intact, hb bleeding controlled, No redness/swelling at site. Pressure dressing applied. Administered Medications: 10:02 Drug: NS 0.9% 500 ml Route: IV; Rate: bolus; Site: left antecubital; hb 11:00 Follow up: Response: No adverse reaction; IV Status: Completed infusion; IV Intake: hb 500ml 10:55 Drug: Xopenex 2.5 mg Route: Inhalation; hb 11:44 Follow up: Response: No adverse reaction hb 10:55 Drug: AtroVENT Aerosol 0.5 mg Route: Inhalation; hb 11:44 Follow up: Response: No adverse reaction hb 11:16 Drug: levofloxacin 750 mg Volume: 150 ml; Route: IVPB; Infused Over: 90 mins; Site: hb left antecubital; 13:50 Follow up: Response: No adverse reaction; IV Status: Completed infusion hb Intake: 10:19 IV: 1000ml; Total: 1000ml. hb 11:00 IV: 500ml; Total: 1500ml. hb Outcome: 10:45 Discharge ordered by . gabriel 13:54 Discharged to home ambulatory. hb 13:54 Condition: stable 13:54 Discharge instructions given to patient, Instructed on discharge instructions, follow up and referral plans. medication usage, Demonstrated understanding of instructions, follow-up care, medications, Prescriptions given X 2. 13:54 Patient left the ED. hb Signatures: Dispatcher [employer] EDRiki Alvarez MD MD cha Buechter, Jesse jb2 Luz Márquez, RN RN Torie Edwards4 Bettye Stinson dt2 Corrections: (The following items were deleted from the chart) 09:47 09:35 X-ray completed. Patient tolerated procedure well. jb2 jb2
--- NOTE | 2019-07-03 10:47 | EDPHYS ---
Physician Documentation [facility] Name: Cherry Mar Age: 23 yrs Sex: Female : 1995 Arrival Date: 07/03/2019 Time: 09:18 Bed 20 Private MD: ED Physician Riki Castro HPI: 07/03 09:35 This 23 yrs old Black Female presents to ER via Ambulatory with complaints of Shortness gabriel Of Breath, Chest Pain, Cough. 09:35 The patient has shortness of breath at rest, with light activity. Onset: The gabriel symptoms/episode began/occurred 3 day(s) ago. Duration: The symptoms are continuous, and are unchanged since they started. The patient's shortness of breath has no apparent modifying factors. Associated signs and symptoms: The patient has no apparent associated signs or symptoms. Severity of symptoms: At their worst the symptoms were mild in the emergency department the symptoms are unchanged. The patient has not experienced similar symptoms in the past. Historical: - Allergies: 09:30 No Known Allergies; hb - Home Meds: 09:30 None [Active]; hb - PMHx: 09:30 Pneumonia; hb - PSHx: 09:30 ; hb - Immunization history:: Adult Immunizations up to date. - Social history:: Smoking status: Patient/guardian denies using tobacco. - Ebola Screening: : No symptoms or risks identified at this time. - Family history:: not pertinent. ROS: 09:35 Constitutional: Negative for fever, chills, and weight loss, Eyes: Negative for injury, gabriel pain, redness, and discharge, ENT: Negative for injury, pain, and discharge, Neck: Negative for injury, pain, and swelling, Abdomen/GI: Negative for abdominal pain, nausea, vomiting, diarrhea, and constipation, Back: Negative for injury and pain, : Negative for injury, bleeding, discharge, and swelling, MS/Extremity: Negative for injury and deformity, Skin: Negative for injury, rash, and discoloration, Neuro: Negative for headache, weakness, numbness, tingling, and seizure, Psych: Negative for depression, anxiety, suicide ideation, homicidal ideation, and hallucinations, Allergy/Immunology: Negative for hives, rash, and allergies, Endocrine: Negative for neck swelling, polydipsia, polyuria, polyphagia, and marked weight changes, Hematologic/Lymphatic: Negative for swollen nodes, abnormal bleeding, and unusual bruising. 09:35 Cardiovascular: Positive for chest pain. 09:35 Respiratory: Positive for cough, with green sputum. Exam: 09:35 Constitutional: This is a well developed, well nourished patient who is awake, alert, gabriel and in no acute distress. Head/Face: Normocephalic, atraumatic. Eyes: Pupils equal round and reactive to light, extra-ocular motions intact. Lids and lashes normal. Conjunctiva and sclera are non-icteric and not injected. Cornea within normal limits. Periorbital areas with no swelling, redness, or edema. ENT: Nares patent. No nasal discharge, no septal abnormalities noted. Tympanic membranes are normal and external auditory canals are clear. Oropharynx with no redness, swelling, or masses, exudates, or evidence of obstruction, uvula midline. Mucous membranes moist. Neck: Trachea midline, no thyromegaly or masses palpated, and no cervical lymphadenopathy. Supple, full range of motion without nuchal rigidity, or vertebral point tenderness. No Meningismus. Chest/axilla: Normal chest wall appearance and motion. Nontender with no deformity. No lesions are appreciated. Cardiovascular: Regular rate and rhythm with a normal S1 and S2. No gallops, murmurs, or rubs. Normal PMI, no JVD. No pulse deficits. Respiratory: Lungs have equal breath sounds bilaterally, clear to auscultation and percussion. No rales, rhonchi or wheezes noted. No increased work of breathing, no retractions or nasal flaring. Abdomen/GI: Soft, non-tender, with normal bowel sounds. No distension or tympany. No guarding or rebound. No evidence of tenderness throughout. Back: No spinal tenderness. No costovertebral tenderness. Full range of motion. Skin: Warm, dry with normal turgor. Normal color with no rashes, no lesions, and no evidence of cellulitis. MS/ Extremity: Pulses equal, no cyanosis. Neurovascular intact. Full, normal range of motion. Neuro: Awake and alert, GCS 15, oriented to person, place, time, and situation. Cranial nerves II-XII grossly intact. Motor strength 5/5 in all extremities. Sensory grossly intact. Cerebellar exam normal. Normal gait. Psych: Awake, alert, with orientation to person, place and time. Behavior, mood, and affect are within normal limits. Vital Signs: 09:30 BP 117 / 67; Pulse 62; Resp 16; Temp 97.4; Pulse Ox 100% on R/A; Weight 61.23 kg; hb Height 5 ft. 8 in. (172.72 cm); Pain 3/10; 10:30 BP 109 / 78; Pulse 64; Resp 15; Pulse Ox 100% on R/A; hb 11:30 BP 124 / 74; Pulse 62; Resp 14; Pulse Ox 100% on R/A; hb 12:30 BP 122 / 70; Pulse 69; Resp 16; Pulse Ox 100% on R/A; hb 13:15 BP 108 / 72; Pulse 66; Resp 15; Pulse Ox 100% on R/A; hb 09:30 Body Mass Index 20.53 (61.23 kg, 172.72 cm) hb MDM: 09:30 Patient medically screened. [facility] 09:36 Data reviewed: vital signs, nurses notes, lab test result(s), EKG, radiologic studies, gabriel plain films. 07/03 09:35 Order name: Basic Metabolic Panel; Complete Time: 10:47 [facility] 07/03 09:35 Order name: CBC with Diff; Complete Time: 12:35 [facility] 07/03 09:35 Order name: LFT's; Complete Time: 10:47 [facility] 07/03 09:35 Order name: Magnesium; Complete Time: 10:47 [facility] 07/03 09:35 Order name: NT PRO-BNP; Complete Time: 10:47 [facility] 07/03 09:35 Order name: Troponin (emerg Dept Use Only); Complete Time: 10:47 [facility] 07/03 09:35 Order name: D-Dimer; Complete Time: 10:34 [facility] 07/03 09:37 Order name: Chest Pa And Lat (2 Views) XRAY; Complete Time: 10:34 [facility] 07/03 10:37 Order name: Blood Culture Adult (2) [facility] 07/03 10:57 Order name: CBC Smear Scan; Complete Time: 12:35 EDMS 07/03 09:35 Order name: EKG; Complete Time: 09:36 [facility] 07/03 09:35 Order name: Cardiac monitoring; Complete Time: 10:12 [facility] 07/03 09:35 Order name: EKG - Nurse/Tech; Complete Time: 10:12 [facility] 07/03 09:35 Order name: IV Saline Lock; Complete Time: 10: [facility] 07/03 09:35 Order name: Labs collected and sent; Complete Time: 10: [facility] 07/03 09:35 Order name: O2 Per Protocol; Complete Time: 10: [facility] 07/03 09:35 Order name: O2 Sat Monitoring; Complete Time: 10:13 [facility] Administered Medications: 10:02 Drug: NS 0.9% 500 ml Route: IV; Rate: bolus; Site: left antecubital; hb 11:00 Follow up: Response: No adverse reaction; IV Status: Completed infusion; IV Intake: hb 500ml 10:55 Drug: Xopenex 2.5 mg Route: Inhalation; hb 11:44 Follow up: Response: No adverse reaction hb 10:55 Drug: AtroVENT Aerosol 0.5 mg Route: Inhalation; hb 11:44 Follow up: Response: No adverse reaction hb 11:16 Drug: levofloxacin 750 mg Volume: 150 ml; Route: IVPB; Infused Over: 90 mins; Site: hb left antecubital; 13:50 Follow up: Response: No adverse reaction; IV Status: Completed infusion hb Disposition: 07/03/19 10:45 Discharged to Home. Impression: Dyspnea, Pneumonia due to other specified bacteria. - Condition is Stable. - Discharge Instructions: Community-Acquired Pneumonia, Adult, Community-Acquired Pneumonia, Adult, [id number]. - Prescriptions for Levaquin 750 mg Oral Tablet - take 1 tablet by ORAL route once daily for 8-10 days; 9 tablet. Albuterol Sulfate 90 mcg/actuation - inhale 1-2 puff by INHALATION route every 4-6 hours; 1 Inhaler. - Medication Reconciliation Form, Thank You Letter, Antibiotic Education, Prescription Opioid Use form. - Follow up: Private Physician; When: 2 - 3 days; Reason: Recheck today's complaints, Continuance of care, Re-evaluation by your physician. Follow up: Jose Camp MD; When: 2 - 3 days; Reason: Recheck today's complaints, Re-evaluation by your physician. - Problem is new. - Symptoms have improved. Signatures: Dispatcher [employer] EDRiki Alvarez MD MD cha Baxter, Heather, RN RN Corrections: (The following items were deleted from the chart) 09:47 09:36 Chest Single View+RAD.RAD.BRZ ordered. [facility] EDMS 13:54 10:45 07/03/2019 10:45 Discharged to Home. Impression: Dyspnea; Pneumonia due to other hb specified bacteria. Condition is Stable. Forms are Medication Reconciliation Form, Thank You Letter, Antibiotic Education, Prescription Opioid Use. Follow up: Private Physician; When: 2 - 3 days; Reason: Recheck today's complaints, Continuance of care, Re-evaluation by your physician. Follow up: Jose Camp; When: 2 - 3 days; Reason: Recheck today's complaints, Re-evaluation by your physician. Problem is new. Symptoms have improved. gabriel
[2019-07-03 10:57] LABS: Anisocytosis 1+; Blood Morphology Comment NOTED (NOT SEEN); Platelet Estimate ADEQ; Urine White Blood Cell Casts OK
[2019-07-03] MEDS ORDERED: ALBUTEROL 2.5 MG/3 ML NEB SOL ONE (11:01)
[2019-07-03] MEDS ORDERED: Levofloxacin 750mg IV 750 MG/150 ML BAG IV ONE (11:01)
[2019-07-03] MEDS ORDERED: IPRATROPIUM BROM 0.5MG/2.5ML ONE (11:01)
--- NOTE | 2019-07-03 12:19 | EKG ---
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
[2019-07-03 14:21] VITALS: TEMP 97.4; O2SAT 100
[2019-07-03 14:26] VITALS: BP 108/72
== END 2019-07-03 13:54 | disposition home or self-care (01) ==
LOC: ER 09:17
DX: J15.8 Pneumonia due to other specified bacteria (principal)
CPT/HCPCS: 36415; 71046; 80048; 80076; 83735; 83880; 84484; 85025; 85379; 87040; 93005; 96361; 96365; 96366; 99284

== ENCOUNTER 2019-12-05 20:53 | Emergency (ER) | payer BC, OTHER ==
[2019-12-05] MEDS ORDERED: CEFTRIAXONE 1000 MG/VIAL ONE (23:07)
[2019-12-05] MEDS ORDERED: LIDOCAINE 1% MPF 5 ML VIAL ONE (23:07)
--- NOTE | 2019-12-05 23:26 | ER ---
Nurse's Notes [facility] Name: Cherry Mar Age: 24 yrs Sex: Female : 1995 Arrival Date: 12/05/2019 Time: 20:55 Bed 5 Private MD: Diagnosis: Acute upper respiratory infection, unspecified;Acute pharyngitis Presentation: 12/05 21:27 Presenting complaint: Patient states: she is concerned she had pneumonia x 3 last year bb and she started having fever at home yesterday with cough, chest pain, back pain, abdominal pain and diarrhea. Transition of care: patient was not received from another setting of care. Onset of symptoms was December 04, 2019. Risk Assessment: Do you want to hurt yourself or someone else? Patient reports no desire to harm self or others. Initial Sepsis Screen: Does the patient meet any 2 criteria? No. Patient's initial sepsis screen is negative. Does the patient have a suspected source of infection? No. Patient's initial sepsis screen is negative. Care prior to arrival: None. 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 - Social history:: Smoking status: Patient/guardian denies using tobacco. - Ebola Screening: : No symptoms or risks identified at this time. Screenin:41 Abuse screen: Denies threats or abuse. Denies injuries from another. Nutritional aa1 screening: No deficits noted. Tuberculosis screening: No symptoms or risk factors identified. Fall Risk None identified. Assessment: 21:41 General: Appears in no apparent distress. comfortable, Behavior is calm, cooperative, aa1 appropriate for age. Pain: Pain currently is 0 out of 10 on a pain scale. Neuro: Level of Consciousness is awake, alert, obeys commands, Oriented to person, place, time, situation, Moves all extremities. Full function Gait is steady, Speech is normal. Respiratory: Reports cough that is Airway is patent Respiratory effort is even, unlabored, Respiratory pattern is regular, symmetrical, Breath sounds are clear bilaterally. Onset: The symptoms/episode began/occurred 2 days ago. GI: Reports diarrhea. : No signs and/or symptoms were reported regarding the genitourinary system. EENT: No signs and/or symptoms were reported regarding the EENT system. Derm: Skin is intact, is healthy with good turgor, Skin is pink, warm \T\ dry. Musculoskeletal: Circulation, motion, and sensation intact. Capillary refill < 3 seconds. 22:40 Reassessment: Patient appears in no apparent distress at this time. Patient and/or aa1 family updated on plan of care and expected duration. Pain level reassessed. Patient is alert, oriented x 3, equal unlabored respirations, skin warm/dry/pink. Awaiting provider reassessment. 23:53 Reassessment: Patient appears in no apparent distress at this time. Patient is alert, aa1 oriented x 3, equal unlabored respirations, skin warm/dry/pink. Discussed d/c \T\ f/u instructions with pt; denies questions or concerns at this time. Ambulatory to lobby with steady gait. Vital Signs: 21:29 BP 121 / 82; Pulse 94; Resp 16 S; Temp 98.7(O); Pulse Ox 100% on R/A; Weight 74.39 kg bb (R); Height 5 ft. 4 in. (162.56 cm) (R); Pain 0/10; 21:41 BP 108 / 74; Pulse 89; Resp 18; Pulse Ox 100% on R/A; Pain 0/10; aa1 22:45 BP 113 / 75; Pulse 72; Resp 16; Pulse Ox 99% on R/A; Pain 0/10; aa1 23:53 BP 121 / 80; Pulse 82; Resp 16; Temp 98.5; Pulse Ox 100% on R/A; Pain 0/10; aa1 21:29 Body Mass Index 28.15 (74.39 kg, 162.56 cm) bb ED Course: 20:55 Patient arrived in ED. cl3 21:28 Triage completed. bb 21:29 Arm band placed on Patient placed in an exam room, on a stretcher, on pulse oximetry. bb Labs ordered per protocol. X-ray ordered. 21:36 Ame Collier, RN is Primary Nurse. aa1 21:37 Clay Stallings PA is PHCP. jm 21:37 Riki Castro MD is Attending Physician. [facility] 21:41 Patient has correct armband on for positive identification. Placed in gown. Bed in low aa1 position. Call light in reach. Pulse ox on. NIBP on. Warm blanket given. 21:55 XRAY Chest Pa And Lat (2 Views) In Process Unspecified. EDMS 23:53 No provider procedures requiring assistance completed. Patient did not have IV access aa1 during this emergency room visit. Administered Medications: 23:11 Drug: Rocephin (cefTRIAXone) 1 grams Route: IM; Site: right gluteus; aa1 23:54 Follow up: Response: No adverse reaction aa1 Outcome: 23:26 Discharge ordered by . jmm 23:53 Discharged to home ambulatory. aa1 23:53 Condition: good 23:53 Discharge instructions given to patient, Instructed on discharge instructions, follow up and referral plans. medication usage, Demonstrated understanding of instructions, follow-up care, medications, Prescriptions given X 1. 23:55 Patient left the ED. aa1 Signatures: Dispatcher [employer] EDMS Ame Collier, RN RN aa1 Clay Stallings PA PA jmm Ballard, Brenda, ANA RN Eliu Carrillo cl3
--- NOTE | 2019-12-05 23:26 | EDPHYS ---
Physician Documentation [facility] [place], [place] Name: Cherry Mar Age: 24 yrs Sex: Female : 1995 Arrival Date: 12/05/2019 Time: 20:55 Bed 5 Private MD: ED Physician Riki Castro HPI: 12/05 22:06 This 24 yrs old Black Female presents to ER via Ambulatory with complaints of Flu jmm Symptoms. 22:06 The patient or guardian reports cough. Onset: The symptoms/episode began/occurred jmm gradually, 3 day(s) ago. Modifying factors: The symptoms are alleviated by nothing. the symptoms are aggravated by nothing. Associated signs and symptoms: Pertinent positives: fever, sore throat. This is a 24 year old female with no chronic medical conditions that presents to the ED with complaints of cough, sore throat. Symptoms initially began 2 to 3 weeks ago with sinus congestion and cough. Patient states now having body aches along with sore throat. . 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 - Social history:: Smoking status: Patient/guardian denies using tobacco. - Ebola Screening: : No symptoms or risks identified at this time. ROS: 22:06 Constitutional: Positive for body aches. jmm 22:06 Cardiovascular: Negative for chest pain. 22:06 Respiratory: Positive for cough. 22:06 Abdomen/GI: Positive for abdominal pain. 22:06 All other systems are negative. Exam: 22:06 Constitutional: This is a well developed, well nourished patient who is awake, alert, jmm and in no acute distress. Head/Face: atraumatic. Eyes: EOMI, no conjunctival erythema appreciated ENT: Moist Mucus Membranes Neck: Trachea midline, Supple Chest/axilla: Normal chest wall appearance and motion. Cardiovascular: Regular rate and rhythm. No edema appreciated 22:06 Back: Normal ROM Skin: General appearance color normal MS/ Extremity: Moves all extremities, no obvious deformities appreciated, no edema noted to the lower extremities Neuro: Awake and alert, normal gait Psych: Behavior is normal, Mood is normal, Patient is cooperative and pleasant 22:06 ENT: Posterior pharynx: erythema, that is mild. 22:06 Respiratory: the patient does not display signs of respiratory distress, Respirations: normal, Breath sounds: are clear throughout. 22:06 Abdomen/GI: Inspection: abdomen appears normal, Bowel sounds: normal, Palpation: abdomen is soft and non-tender, in all quadrants. Vital Signs: 21:29 BP 121 / 82; Pulse 94; Resp 16 S; Temp 98.7(O); Pulse Ox 100% on R/A; Weight 74.39 kg bb (R); Height 5 ft. 4 in. (162.56 cm) (R); Pain 0/10; 21:41 BP 108 / 74; Pulse 89; Resp 18; Pulse Ox 100% on R/A; Pain 0/10; aa1 22:45 BP 113 / 75; Pulse 72; Resp 16; Pulse Ox 99% on R/A; Pain 0/10; aa1 23:53 BP 121 / 80; Pulse 82; Resp 16; Temp 98.5; Pulse Ox 100% on R/A; Pain 0/10; aa1 21:29 Body Mass Index 28.15 (74.39 kg, 162.56 cm) bb MDM: 21:51 Patient medically screened. [facility] 23:24 Data reviewed: vital signs, nurses notes. Counseling: I had a detailed discussion with rommel the patient and/or guardian regarding: the historical points, exam findings, and any diagnostic results supporting the discharge/admit diagnosis, lab results, radiology results, the need for outpatient follow up, to return to the emergency department if symptoms worsen or persist or if there are any questions or concerns that arise at home. ED course: Patient is alert and non toxic in appearance in the ED. Patient advised to follow up with pcp and otherwise given strict return precautions. patient understood and agrees with the plan of care. . 12/05 21: Order name: Flu; Complete Time: 22:30 12/05 21:31 Order name: Strep; Complete Time: 22:30 12/05 21:31 Order name: XRAY Chest Pa And Lat (2 Views) 12/05 22:30 Order name: Throat Culture EDMS Administered Medications: 23:11 Drug: Rocephin (cefTRIAXone) 1 grams Route: IM; Site: right gluteus; aa1 23:54 Follow up: Response: No adverse reaction aa1 Disposition: 12/06 08:36 Co-signature as Attending Physician, Riki Castro MD I agree with the assessment and [facility] plan of care. Disposition: 12/05/19 23:26 Discharged to Home. Impression: Acute upper respiratory infection, unspecified, Acute pharyngitis. - Condition is Stable. - Discharge Instructions: Pharyngitis, Upper Respiratory Infection, Adult. - Prescriptions for Zithromax Z- Michael 250 mg Oral Tablet - take 1 tablet by ORAL route as directed for 5 days Day 1 - take two (2) tablets one time. Day 2, 3, 4 , 5 take one (1) tablet once daily.; 6 tablet. - Medication Reconciliation Form, Thank You Letter, Antibiotic Education, Prescription Opioid Use form. - Work release form (12/06/19 19:11). eb - Follow up: Private Physician; When: 2 - 3 days; Reason: Recheck today's complaints, Continuance of care, Re-evaluation by your physician. Signatures: Dispatcher [employer] EDAme Dow RN RN aa1 Riki Castro MD MD cha Mickail, Joel, PA PA jmm Ballard, Brenda, RN RN Domenica Prince Corrections: (The following items were deleted from the chart) 12/05 23:55 23:26 12/05/2019 23:26 Discharged to Home. Impression: Acute upper respiratory aa1 infection, unspecified; Acute pharyngitis. Condition is Stable. Forms are Medication Reconciliation Form, Thank You Letter, Antibiotic Education, Prescription Opioid Use. Follow up: Private Physician; When: 2 - 3 days; Reason: Recheck today's complaints, Continuance of care, Re-evaluation by your physician. rommel
[2019-12-06 00:35] VITALS: BP 121/80; TEMP 98.5; O2SAT 100
--- NOTE | 2019-12-06 08:48 | RAD REPORT ---
EXAM DESCRIPTION: RAD - Chest Pa And Lat (2 Views) - 12/05/2019 9:56 pm CLINICAL HISTORY: CHEST PAIN COMPARISON: Chest Pa And Lat (2 Views) dated 07/03/2019; Chest Pa And Lat (2 Views) dated 06/06/2019 TECHNIQUE: Frontal and lateral views of the chest were obtained. FINDINGS: The lungs are clear. Heart size is normal and central vasculature is within normal limit s. No pleural effusion or pneumothorax seen. No acute bony finding noted. No aortic abnormality. IMPRESSION: No acute cardiopulmonary process.
== END 2019-12-05 23:55 | disposition home or self-care (01) ==
LOC: ER 20:53
DX: J02.9 Acute pharyngitis, unspecified (principal)
CPT/HCPCS: 71046; 87070; 87081; 87804; 96372; 99284

== ENCOUNTER 2021-05-22 01:22 | Emergency (ER) | payer SELFPAY ==
[2021-05-22] MEDS ORDERED: ACETAMINOPHEN 500 MG TAB ONE (03:50)
--- NOTE | 2021-05-22 04:06 | ER ---
Nurse's Notes [facility] Name: Cherry aMr Age: 25 yrs Sex: Female : 1995 Arrival Date: 05/22/2021 Time: Bed 7 Private MD: Diagnosis: Toe Contusion Presentation: 05/22 01:50 Chief complaint: Patient states: stubbed left big toe 1 week ago, reports increased em pain more swelling. Coronavirus screen: Client denies travel out of the [place] in the last 14 days. Ebola Screen: Patient negative for fever greater than or equal to 101.5 degrees Fahrenheit, and additional compatible Ebola Virus Disease symptoms Patient denies exposure to infectious person. Patient denies travel to an Ebola-affected area in the 21 days before illness onset. No symptoms or risks identified at this time. Initial Sepsis Screen: Does the patient meet any 2 criteria? No. Patient's initial sepsis screen is negative. Does the patient have a suspected source of infection? No. Patient's initial sepsis screen is negative. Risk Assessment: Do you want to hurt yourself or someone else? Patient reports no desire to harm self or others. Onset of symptoms was May 22, 2021. 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 - Social history:: Smoking status: Patient denies any tobacco usage or history of. Screenin: Abuse screen: Denies threats or abuse. Nutritional screening: No deficits noted. bb Tuberculosis screening: No symptoms or risk factors identified. Fall Risk None identified. Assessment: : General: Appears in no apparent distress. Behavior is calm, cooperative. Pain: bb Complains of pain in left first toe Pain currently is 3 out of 10 on a pain scale. Neuro: Level of Consciousness is awake, alert, obeys commands, Oriented to person, place, time, situation. Cardiovascular: Capillary refill < 3 seconds Patient's skin is warm and dry. Respiratory: Respiratory effort is even, unlabored, Respiratory pattern is regular. GI: No signs and/or symptoms were reported involving the gastrointestinal system. Derm: Skin is dry, Skin is normal, Skin temperature is warm. Musculoskeletal: Circulation, motion, and sensation intact. Reports pain in left big toe. Injury Description: pt stubbed her left big toe approx 1 week ago. 03:43 Reassessment: pt appears to be sleeping, eyes closed, resp unlabored, arouses easily bb awaiting results of diagnostic exam. 04:15 Reassessment: Patient is alert, oriented x 3, equal unlabored respirations, skin bb warm/dry/pink. pt verbalized understanding of and agrees to plan of care discharge instructions given pt ambulated with steady gait to exit. Vital Signs: 01:50 BP 123 / 76; Pulse 78; Resp 18; Temp 97.5; Pulse Ox 99% on R/A; Weight 77.11 kg; Height em 5 ft. 4 in. (162.56 cm); Pain 4/10; 02:28 BP 113 / 73; Pulse 61; Resp 16 S; Pulse Ox 98% on R/A; Pain 3/10; bb 03:43 BP 110 / 75; Pulse 63; Resp 14 S; Pulse Ox 97% on R/A; bb 04:16 BP 124 / 72; Pulse 70; Resp 16 S; Pulse Ox 98% on R/A; bb 01:50 Body Mass Index 29.18 (77.11 kg, 162.56 cm) em ED Course: 01:26 Patient arrived in ED. es 01:51 Triage completed. em 01:51 Arm band placed on. em 02:01 Isadora Schwartz, ANA is Primary Nurse. ea 02:03 Neal Menard MD is Attending Physician. 7 02:26 Patient has correct armband on for positive identification. Bed in low position. Call bb light in reach. Warm blanket given. 03:21 Foot Left 3 View XRAY In Process Unspecified. EDMS 04:05 Bhavik Hernandez DPM is Referral Physician. 7 04:16 No provider procedures requiring assistance completed. Patient did not have IV access bb during this emergency room visit. Administered Medications: 03:30 Drug: Tylenol 1000 mg Route: PO; bb 04:07 Follow up: Response: No adverse reaction bb Outcome: 04:05 Discharge ordered by MD. mh7 04:17 Discharged to home ambulatory. boubacar 04:17 Condition: stable 04:17 Discharge instructions given to patient, Instructed on discharge instructions, follow up and referral plans. medication usage, Demonstrated understanding of instructions, follow-up care, medications, Prescriptions given X 1. 04:17 Patient left the ED. boubacar Signatures: Dispatcher [employer] EDAriadna Can Edgar, RN RN em Ballard, Brenda, RN RN Isadora Matt RN RN ea Holmes, Maurice, MD MD mh7
--- NOTE | 2021-05-22 04:06 | EDPHYS ---
Physician Documentation [facility] Name: Cherry Mar Age: 25 yrs Sex: Female : 1995 Arrival Date: 05/22/2021 Time: : Bed 7 Private MD: ED Physician Neal Menard HPI: 05/22 03:29 This 25 yrs old Black Female presents to ER via Ambulatory with complaints of Crush mh7 Injury To Foot. 03:29 The patient presents with an injury. The complaints affect the left first toe. Context: mh7 The problem was sustained on a street or driveway, resulted from stubbing toe on corner of solid object. Mechanism of Injury: direct blow the patient can fully bear weight. Onset: The symptoms/episode began/occurred 1 week(s) ago. Modifying factors: The symptoms are alleviated by nothing, the symptoms are aggravated by weight bearing. Associated signs and symptoms: Pertinent positives: swelling, Pertinent negatives: calf tenderness, fever, nausea, numbness, rash, tingling, vomiting, warmth, weakness. Severity of symptoms: At their worst the symptoms were moderate, 2 day(s) ago, in the emergency department the symptoms are unchanged. 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 - Social history:: Smoking status: Patient denies any tobacco usage or history of. ROS: 03:29 Constitutional: Negative for fever, chills, and weight loss, Eyes: Negative for injury, mh7 pain, redness, and discharge, ENT: Negative for injury, pain, and discharge, Neck: Negative for injury, pain, and swelling, Cardiovascular: Negative for chest pain, palpitations, and edema, Respiratory: Negative for shortness of breath, cough, wheezing, and pleuritic chest pain, Abdomen/GI: Negative for abdominal pain, nausea, vomiting, diarrhea, and constipation, Back: Negative for injury and pain, : Negative for injury, bleeding, discharge, and swelling, Skin: Negative for injury, rash, and discoloration, Neuro: Negative for headache, weakness, numbness, tingling, and seizure, Psych: Negative for depression, anxiety, suicide ideation, homicidal ideation, and hallucinations, Allergy/Immunology: Negative for hives, rash, and allergies, Endocrine: Negative for neck swelling, polydipsia, polyuria, polyphagia, and marked weight changes, Hematologic/Lymphatic: Negative for swollen nodes, abnormal bleeding, and unusual bruising. Exam: 03:29 Constitutional: This is a well developed, well nourished patient who is awake, alert, mh7 and in no acute distress. Skin: Warm, dry with normal turgor. Normal color with no rashes, no lesions, and no evidence of cellulitis. 03:29 Neuro: Awake and alert, GCS 15, oriented to person, place, time, and situation. Cranial nerves II-XII grossly intact. Motor strength 5/5 in all extremities. Sensory grossly intact. Cerebellar exam normal. Normal gait. Psych: Awake, alert, with orientation to person, place and time. Behavior, mood, and affect are within normal limits. 03:29 Musculoskeletal/extremity: Extremities: noted in the left first toe: pain, tenderness, ROM: intact in all extremities, Circulation is intact in all extremities. Sensation intact. Compartment Syndrome exam of affected extremity: is normal. no numbness, no tingling, no sensation deficit, no palor, no weak pulses, Joints: All joints appear normal with full range of motion. Weight bearing: able to fully bear weight, without difficulty, Tendon exam: specific tendon testing normal through active and passive range of motion Vital Signs: 01:50 BP 123 / 76; Pulse 78; Resp 18; Temp 97.5; Pulse Ox 99% on R/A; Weight 77.11 kg; Height em 5 ft. 4 in. (162.56 cm); Pain 4/10; 02:28 BP 113 / 73; Pulse 61; Resp 16 S; Pulse Ox 98% on R/A; Pain 3/10; bb 03:43 BP 110 / 75; Pulse 63; Resp 14 S; Pulse Ox 97% on R/A; bb 04:16 BP 124 / 72; Pulse 70; Resp 16 S; Pulse Ox 98% on R/A; bb 01:50 Body Mass Index 29.18 (77.11 kg, 162.56 cm) em MDM: 04:03 Differential diagnosis: fracture, sprain, penetrating trauma, contusion. Data reviewed: [facility] vital signs, nurses notes, radiologic studies, plain films. Counseling: I had a detailed discussion with the patient and/or guardian regarding: the historical points, exam findings, and any diagnostic results supporting the discharge/admit diagnosis, radiology results, the need for outpatient follow up, to return to the emergency department if symptoms worsen or persist or if there are any questions or concerns that arise at home. Response to treatment: the patient's symptoms have markedly improved after treatment. 04:05 Patient medically screened. [facility] 05/22 02:37 Order name: Foot Left 3 View XRAY 05/22 04:04 Order name: Ortho shoe; Complete Time: 04:15 [facility] Administered Medications: 03:30 Drug: Tylenol 1000 mg Route: PO; bb 04:07 Follow up: Response: No adverse reaction bb Disposition: 05/22/21 04:05 Discharged to Home. Impression: Toe Contusion. - Condition is Stable. - Discharge Instructions: Foot Contusion, [id number]. - Prescriptions for Ibuprofen 800 mg Oral Tablet - take 1 tablet by ORAL route every 8 hours As needed take with food; 15 tablet. - Medication Reconciliation Form, Thank You Letter, Antibiotic Education, Prescription Opioid Use form. - Follow up: Private Physician; When: 1 - 2 days; Reason: Worsening of condition, Recheck today's complaints, Continuance of care, Re-evaluation by your physician. Follow up: Bhavik Hernandez DPM; When: 2 - 3 days; Reason: Worsening of condition, Recheck today's complaints. - Problem is new. - Symptoms have improved. Signatures: Dispatcher [employer] EDFaizna Herrera RN RN em Caron Griffin RN RN bb Neal Menard MD MD [facility] Corrections: (The following items were deleted from the chart) 04:17 04:05 05/22/2021 04:05 Discharged to Home. Impression: Toe Contusion. Condition is bb Stable. Forms are Medication Reconciliation Form, Thank You Letter, Antibiotic Education, Prescription Opioid Use. Follow up: Private Physician; When: 1 - 2 days; Reason: Worsening of condition, Recheck today's complaints, Continuance of care, Re-evaluation by your physician. Follow up: Bhavik David; When: 2 - 3 days; Reason: Worsening of condition, Recheck today's complaints. Problem is new. Symptoms have improved. mh7
[2021-05-22 04:21] VITALS: TEMP 97.5
[2021-05-22 04:26] VITALS: BP 124/72; O2SAT 98
--- NOTE | 2021-05-22 08:57 | RAD REPORT ---
EXAM DESCRIPTION: RAD - Foot Left 3 View - 05/22/2021 3:22 am CLINICAL HISTORY: PAINand swelling left first toe, trauma 1 week earlier COMPARISON: No comparisons FINDINGS: No fracture, dislocation or periosteal reaction. No acute or destructive bony process. No air or foreign body in the soft tissues. IMPRESSION: Negative left foot examination.
== END 2021-05-22 04:17 | disposition home or self-care (01) ==
LOC: ER 01:22
DX: S90.112A Contusion of left great toe without damage to nail, initial encounter (principal); X58.XXXA Exposure to other specified factors, initial encounter; Y92.488 Other paved roadways as the place of occurrence of the external cause
CPT/HCPCS: 99283

== ENCOUNTER 2023-09-28 17:31 | Emergency (ER) | payer OTHER ==
[2023-09-28] MEDS ORDERED: ONDANSETRON 4 MG (ODT) TAB ONE (18:06)
[2023-09-28 18:30] LABS: Specific Gravity 1.028 (1.005-1.030); Specific Gravity > 1.030 (1.005-1.030); Urine Bacteria 20-50 /HPF (<20); Urine Bilirubin NEGATIVE (Negative); Urine Blood 3+ (OVER) (Negative); Urine Clarity Extremely Turbid (Clear); Urine Color Dark-Brown (Yellow); Urine Crystals Unidentified Moderate /HPF (None Seen); Urine Glucose NEGATIVE (Negative); Urine Mucus 4+ /HPF (None Seen); Urine Protein 2+ (Negative); Urine RBC >50 /HPF (None Seen); Urine Urobilinogen Normal (Normal)
--- NOTE | 2023-09-28 19:30 | ER ---
Nurse's Notes [facility] Name: Cherry Mar Age: 27 yrs Sex: Female : 1995 Arrival Date: 09/28/2023 Time: 17:31 Bed 18 Private MD: Diagnosis: Acute upper respiratory infection, unspecified;Upper abdominal pain, unspecified Presentation: 09/28 17:48 Chief complaint: Patient states: Nausea, body aches and chills onset yesterday. Pt cm10 states that her daughter is sick at home. Coronavirus screen: Vaccine status: Patient reports being unvaccinated. Client denies travel out of the [place] in the last 14 days. Ebola Screen: Patient denies travel to an Ebola-affected area in the 21 days before illness onset. No symptoms or risks identified at this time. Initial Sepsis Screen: Does the patient meet any 2 criteria? No. Patient's initial sepsis screen is negative. Does the patient have a suspected source of infection? No. Patient's initial sepsis screen is negative. Risk Assessment: Do you want to hurt yourself or someone else? Patient reports no desire to harm self or others. Onset of symptoms was September 28, 2023. 17:48 Method Of Arrival: Ambulatory cm10 17:48 Acuity: RUFUS 3 cm10 Historical: - Allergies: 17:50 No Known Allergies; cm10 - Home Meds: 17:50 None [Active]; cm10 - PMHx: 17:50 Pneumonia; cm10 - PSHx: 17:50 None; cm10 - Immunization history:: Adult Immunizations unknown. - Social history:: Smoking status: Patient reports the use of cigarette tobacco products, denies chronic smoking, but will smoke occasionally. Screenin:49 [facility] ED Fall Risk Assessment (Adult) Score/Fall Risk Level 0 - 2 = Low Risk ll1 Oriented to surroundings, Maintained a safe environment, Educated pt \T\ family on fall prevention, incl call for assistance when getting out of bed, Hourly rounding (assess needs \T\ fall precautionary measures) done. Abuse screen: Denies threats or abuse. Nutritional screening: No deficits noted. Tuberculosis screening: No symptoms or risk factors identified. Assessment: 18:48 General: Appears in no apparent distress. Behavior is calm, cooperative, appropriate ll1 for age. General: Reports chills for feeling ill for fatigue for. Pain: Complains of pain in abdomen Quality of pain is described as aching, crampy. EENT: Reports nasal congestion pain in body aches. 18:48 GI: Reports nausea. ll1 19:28 General: Appears in no apparent distress. uncomfortable, Behavior is calm, cooperative, eh3 appropriate for age. Pain: Complains of pain in abdomen. Neuro: Level of Consciousness is awake, alert, obeys commands, Oriented to person, place, time, situation. Cardiovascular: Capillary refill Patient's skin is warm and dry. Respiratory: Airway is patent Respiratory effort is even, unlabored, Respiratory pattern is regular, symmetrical. GI: Abdomen is round non-distended, Reports lower abdominal pain, nausea. Derm: Skin is pink, warm \T\ dry. Musculoskeletal: Circulation, motion, and sensation intact. 20:27 Reassessment: Patient appears in no apparent distress at this time. Patient and/or eh3 family updated on plan of care and expected duration. Pain level reassessed. Patient is alert, oriented x 3, equal unlabored respirations, skin warm/dry/pink. 20:55 Reassessment: waiting for a ride and the IVF bolus to finish. rv Vital Signs: 17:48 BP 140 / 83; Pulse 74; Resp 16; Temp 98.8(O); Pulse Ox 100% on R/A; Weight 68.04 kg; cm10 Height 5 ft. 2 in. ; Pain 9/10; 19:28 BP 134 / 82; Pulse 69; Resp 21; Temp 99.7(O); Pulse Ox 100% on R/A; eh3 20:27 BP 138 / 101; Pulse 61; Resp 16; Pulse Ox 100% on R/A; eh3 17:48 Body Mass Index 27.44 (68.04 kg, 157.48 cm) cm10 17:48 Pain Scale: Adult cm10 ED Course: 17:37 Patient arrived in ED. mg5 17:40 Candida Stringer FNP-C is [facility]. kb 17:40 Gwyn Gonzalez MD is Attending Physician. kb 17:50 Triage completed. cm10 17:50 Arm band placed on Patient placed in waiting room. cm10 17:54 COVID-19 SARS RT PCR Sent. cm10 17:54 Flu Sent. cm10 18:00 Urine collected: clean catch specimen, blood tinged. cm10 18:49 Patient has correct armband on for positive identification. Bed in low position. Call ll1 light in reach. Cardiac monitoring not applicable on this patient. 19:27 Agnes Deal, RN is Primary Nurse. 3 19:28 Provided Education on: use of call stark. eh3 19:45 Initial lab(s) drawn, by ny, sent to lab. eh3 20:14 Inserted saline lock: 20 gauge in left antecubital area, using aseptic technique. as6 21:04 No provider procedures requiring assistance completed. IV discontinued, intact, rv bleeding controlled, No redness/swelling at site. Pressure dressing applied. Administered Medications: 17:54 Drug: Ondansetron Oral Disintegrating Tablet Oral Disintegrating Tablet 4 mg PO once cm10 Route: PO; 18:48 Follow up: Response: No adverse reaction ll1 20:10 Drug: NS 0.9% IV 1000 ml IV at 1 bolus Per protocol; 1000 mL bolus Route: IV; Rate: 1 eh3 bolus; Site: left antecubital; 21:04 Follow up: IV Status: Completed infusion; IV Intake: 1000ml rv 20:10 Drug: Famotidine IVP 20 mg IVP once; dilute with 10 mL 0.9% NaCl; give over 2 minutes 3 Route: IVP; Site: left antecubital; 21:04 Follow up: Response: No adverse reaction rv 20:10 Drug: TORadol - Ketorolac IVP 15 mg IVP once Route: IVP; Site: left antecubital; 3 21:04 Follow up: Response: No adverse reaction rv Medication: 18:49 VIS not applicable for this client. ll1 Intake: 21:04 IV: 1000ml; Total: 1000ml. rv Outcome: 19:30 Discharge ordered by . ramiro 20:30 Discharge ordered by . ramiro 21:04 Discharged to home ambulatory, rv 21:04 Condition: improved 21:04 Discharge instructions given to patient, Instructed on discharge instructions, follow up and referral plans. medication usage, Demonstrated understanding of instructions, follow-up care, medications, Prescriptions given X 1, 21:04 Patient left the ED. rv Signatures: Candida Stringer, HAZMAT CDL A DRIVER-C HAZMAT CDL A DRIVER-Julián Meyers RN RN rv Zenaida Crouch RN RN ll1 Juan Francisco Jose, ANA RN as6 Agnes Deal RN RN eh3 Rocio Pitts RN RN cm10 Rebeca Betancourt 5 Corrections: (The following items were deleted from the chart) 18:49 18:48 Pain: Complains of pain in abdomen Quality of pain is described as aching, ll1 crampy, ll1
--- NOTE | 2023-09-28 19:31 | EDPHYS ---
Physician Documentation [facility] Name: Cherry Mar Age: 27 yrs Sex: Female : 1995 Arrival Date: 09/28/2023 Time: 17:31 Bed 18 Private MD: ED Physician Gwyn Gonzalez HPI: 09/28 18:41 This 27 yrs old Black Female presents to ER via Ambulatory with complaints of Flu kb Symptoms. 18:41 Patient is a 27-year-old female who presents for body aches, chills and nausea that kb started yesterday. Denies cough congestion.. Historical: - Allergies: 17:50 No Known Allergies; cm10 - Home Meds: 17:50 None [Active]; cm10 - PMHx: 17:50 Pneumonia; cm10 - PSHx: 17:50 None; cm10 - Immunization history:: Adult Immunizations unknown. - Social history:: Smoking status: Patient reports the use of cigarette tobacco products, denies chronic smoking, but will smoke occasionally. ROS: 22:01 Respiratory: Negative for shortness of breath, cough, wheezing, and pleuritic chest kb pain, 22:01 Constitutional: Positive for body aches, chills, fatigue, 22:01 Abdomen/GI: Positive for nausea and vomiting, Negative for abdominal pain, 22:02 All other systems are negative, kb Exam: 22:02 Constitutional: This is a well developed, well nourished patient who is awake, alert, kb and in no acute distress. Head/Face: Normocephalic, atraumatic. ENT: Moist Mucous membranes Cardiovascular: Regular rate Respiratory: Respirations even and unlabored. No increased work of breathing. Talking in full sentences Abdomen/GI: Soft, non-tender. No distention Skin: Warm, dry with normal turgor. Normal color. MS/ Extremity: Pulses equal, no cyanosis. Neurovascular intact. Full, normal range of motion. Neuro: Awake and alert, GCS 15, oriented to person, place, time, and situation. Moves all extremities. Normal gait. Vital Signs: 17:48 BP 140 / 83; Pulse 74; Resp 16; Temp 98.8(O); Pulse Ox 100% on R/A; Weight 68.04 kg; cm10 Height 5 ft. 2 in. ; Pain 9/10; 19:28 BP 134 / 82; Pulse 69; Resp 21; Temp 99.7(O); Pulse Ox 100% on R/A; eh3 20:27 BP 138 / 101; Pulse 61; Resp 16; Pulse Ox 100% on R/A; eh3 17:48 Body Mass Index 27.44 (68.04 kg, 157.48 cm) cm10 17:48 Pain Scale: Adult cm10 MDM: 17:40 Patient medically screened. kb 20:08 ED course: upon reexamination and discharge instructions, pt reported upper abdominal kb pain. Labs ordered. No abdominal tenderness on exam.. 22:00 Differential diagnosis: URI, Flu, COVID, strep, pancreatitis, cholelithiasis, GERD. kb Data reviewed: vital signs, nurses notes. Test considered but Not performed: Ultrasound Abdominal ultrasound considered but patient has no abdominal tenderness and labs within normal limits. Counseling: I had a detailed discussion with the patient and/or guardian regarding the historical points, exam findings, and any diagnostic results supporting the discharge/admit diagnosis, lab results, the need for outpatient follow up, a family practitioner, to return to the emergency department if symptoms worsen or persist or if there are any questions or concerns that arise at home. 09/28 17:50 Order name: Test, Urine; Complete Time: 18:31 kb 09/28 17:50 Order name: Urinalysis w/ reflexes; Complete Time: 18:31 kb 09/28 17:50 Order name: Flu; Complete Time: 19:26 kb 09/28 17:50 Order name: COVID-19 SARS RT PCR; Complete Time: 18:54 kb 09/28 19:37 Order name: CBC with Diff; Complete Time: 20:53 kb 09/28 19:37 Order name: CMP; Complete Time: 20:31 kb 09/28 19:37 Order name: Lipase; Complete Time: 20:31 kb 09/28 20:22 Order name: CBC Smear Scan; Complete Time: 20:53 EDMS 09/28 18:32 Order name: PO challenge; Complete Time: 18:47 kb 09/28 19:37 Order name: IV Saline Lock; Complete Time: 20:10 kb 09/28 19:37 Order name: Labs collected and sent; Complete Time: 20:06 kb Administered Medications: 17:54 Drug: Ondansetron Oral Disintegrating Tablet Oral Disintegrating Tablet 4 mg PO once cm10 Route: PO; 18:48 Follow up: Response: No adverse reaction ll1 20:10 Drug: NS 0.9% IV 1000 ml IV at 1 bolus Per protocol; 1000 mL bolus Route: IV; Rate: 1 eh3 bolus; Site: left antecubital; 21:04 Follow up: IV Status: Completed infusion; IV Intake: 1000ml rv 20:10 Drug: Famotidine IVP 20 mg IVP once; dilute with 10 mL 0.9% NaCl; give over 2 minutes eh3 Route: IVP; Site: left antecubital; 21:04 Follow up: Response: No adverse reaction rv 20:10 Drug: TORadol - Ketorolac IVP 15 mg IVP once Route: IVP; Site: left antecubital; eh3 21:04 Follow up: Response: No adverse reaction rv Disposition Summary: 09/28/23 20:30 Discharge Ordered Notes: Location: Home(09/28/23 20:30) kb Condition: Stable(09/28/23 20:30) kb Diagnosis - Acute upper respiratory infection, unspecified(09/28/23 20:30) kb - Upper abdominal pain, unspecified kb Followup: kb - With: Emergency Department - When: As needed - Reason: Worsening of condition Followup: kb - With: Private Physician - When: 2 - 3 days - Reason: Recheck today's complaints, Continuance of care, Re-evaluation by your physician Discharge Instructions: - Discharge Summary Sheet kb - Upper Respiratory Infection, Pediatric kb - Abdominal Pain, Adult, [id number] kb Forms: - Medication Reconciliation Form kb - Thank You Letter kb - Antibiotic Education kb - Prescription Opioid Use kb - Patient Portal Instructions kb - Leadership Thank You Letter kb Prescriptions: - Zofran 4 mg Oral tablet - take 1 tablet ORAL route every 6 hours As needed; 12 tablet; Refills: 0, kb Product Selection Permitted Signatures: Dispatcher [employer] Candida Partida FNP-C FNP-Agnes Levi RN RN eh3 Rocio Pitts RN RN cm10 Julián Archer RN rv Zenaida Crouch RN ll1 Corrections: (The following items were deleted from the chart) 19:37 19:30 Home kb kb 19:37 19:30 Stable kb kb 19:37 19:30 Acute upper respiratory infection, unspecified kb kb 22:01 20:08 ED course: upon reexamination and discharge instructions, pt reported upper kb abdominal pain. Labs ordered. kb
[2023-09-28 20:16] LABS: Hematocrit 38.1 % (36.0-45.0); Lymphocytes % 23.8 % (15.3-44.8); MCV 81.1 fL (80-100); MPV 8.7 fL (7.6-11.3); Platelets 224 thou/uL (152-406)
[2023-09-28] MEDS ORDERED: KETOROLAC 30 MG/ML INJ ONE (20:21)
[2023-09-28] MEDS ORDERED: NA CHLORIDE 0.9% 1,000 ML ONE (20:22)
[2023-09-28] MEDS ORDERED: FAMOTIDINE 20 MG/2 ML VIAL IV ONE (20:22)
[2023-09-28 20:29] LABS: Albumin 4.4 g/dL (3.4-5.0); Bilirubin Total 0.6 mg/dL (0.2-1.0); Potassium 3.4 mEq/L (3.5-5.1); Protein, Total 8.7 g/dL (6.4-8.2)
[2023-09-28 20:45] LABS: Blood Morphology Comment NOT SEEN (NOT SEEN); Platelet Estimate ADEQ; White Blood Cell Scan OK (OK)
[2023-09-28 21:32] VITALS: O2SAT 100
[2023-09-28 21:34] VITALS: TEMP 99.7
[2023-09-28 21:35] VITALS: BP 138/101
== END 2023-09-28 21:04 | disposition home or self-care (01) ==
LOC: ER 17:31
DX: J06.9 Acute upper respiratory infection, unspecified (principal); R10.10 Upper abdominal pain, unspecified; Z11.52 Encounter for screening for COVID-19
CPT/HCPCS: 96361; 85025; 81001; 36415; 81025; 83690; 80053; 87635; 87804 ×2; 96375; 96374; 99284; Q0162; J7030

== ENCOUNTER 2023-11-06 10:44 | Day surgery (SDC) | payer OTHER ==
[2023-11-06] MEDS ORDERED: Ringers Lactate 1,000 ML IV ONE (11:26)
[2023-11-06] MEDS ORDERED: CEFOXITIN SODIUM 1 GM/VIAL ONE (11:26)
[2023-11-06 11:38] LABS: Absolute Lymphocytes (CBC) 1.4 K/uL (0.7-4.9); Hematocrit 35.3 % (36.0-45.0); Lymphocytes % 44.9 % (15.3-44.8); MPV 7.7 fL (7.6-11.3); Platelets 270 thou/uL (152-406); RBC Red Blood Cell Count 4.36 M/uL (3.86-4.86)
[2023-11-06 11:52] LABS: Potassium 3.5 mEq/L (3.5-5.1)
[2023-11-06] MEDS ORDERED: BUPIVACAINE 0.25% PF 30 ML VIAL ONE (12:44)
[2023-11-06 12:46] LABS: Urine Specific Gravity/Preg >1.030 (1.005-1.030)
[2023-11-06] MEDS ORDERED: dexAMETHasone 4 MG/ML VIAL ONE (12:51)
[2023-11-06] MEDS ORDERED: ONDANSETRON 4 MG/2 ML VIAL ONE (12:51)
[2023-11-06] MEDS ORDERED: propofoL 200 MG/20 ML VIAL IV ONE (12:51)
[2023-11-06] MEDS ORDERED: MIDAZOLAM HCL 2 MG/2 ML INJ ONE (12:51)
[2023-11-06] MEDS ORDERED: ROCURONIUM 50 MG/5 ML VIAL IV ONE (12:51)
[2023-11-06] MEDS ORDERED: FENTANYL CITR 100 MCG/2 ML ONE (12:52)
--- NOTE | 2023-11-06 13:54 | P.OP ---
Preoperative diagnosis: Cholecystitis Postoperative diagnosis: Cholecystitis Primary procedure: Laparoscopic Cholecystectomy with ICG Cholangiography Anesthesia: GETA + Local Estimated blood loss: <2cc Specimen: Gallbladder Findings: Adhesions to gallbladder Complications: None Transferred to: Recovery Room Condition: Good
[2023-11-06] MEDS ORDERED: GLYCOPYRROLATE 0.2 MG/ML SYR ONE ×3 (13:57)
[2023-11-06] MEDS ORDERED: NEOSTIGMINE 1 MG/ML -10 ML VIAL ONE (13:57)
[2023-11-06] MEDS ORDERED: HYDROMORPHONE HCL 1 MG/ML INJ ONE (14:14)
[2023-11-06] MEDS ORDERED: KETOROLAC 30 MG/ML INJ ONE (14:15)
[2023-11-06] MEDS ORDERED: DIPHENHYDRAMINE 50 MG/ML VIAL ONE (14:23)
[2023-11-06] MEDS: FENTANYL CITR 100 MCG/2 ML ONE ×2 (14:35→14:40)
[2023-11-06 15:26] VITALS: BP 138/88; TEMP 97; O2SAT 98
[2023-11-06] MEDS ORDERED: HYDROCODONE/APAP 5/325 MG TAB ONE (16:03)
[2023-11-06] MEDS ORDERED: HYDROCODONE/APAP 7.5/325 MG TAB ONE (16:05)
--- NOTE | 2023-11-06 22:19 | OP ---
Date of Procedure: 11/06/2023 Surgeon: Josiah Hartley MD, Preoperative Diagnosis: Cholecystitis. Postoperative Diagnosis: Cholecystitis. Procedure: Laparoscopic cholecystectomy with indocyanine green cholangiography. Anesthesia: General endotracheal plus local with 0.25% Marcaine. Estimated Blood Loss: Less than 2 cc. Specimen: Gallbladder. Findings: Adhesions to the anterior surface of the gallbladder. Umbilical hernia. Complications: None. Disposition: Patient transferred to recovery room in good condition. Procedure In Detail: After informed consent was obtained, patient was brought to the operating room, prepped and draped in the usual sterile fashion. After adequate anesthesia was achieved, I made a s upraumbilical incision down to subcutaneous tissues, dissected down into the fat and a 5 mm 0-degree optical trocar was introduced in the abdomen without evidence of complication. Insufflation was obta ined to 15 mmHg at this time. There was no injury to vital structures upon entry into the abdomen. Two additional trocars were placed, one in the epigastrium and one in the right upper quadrant. Both were similarly anesthetized, sharply incised. A 5 mm trocar was placed under direct visualization w ithout evidence of complication. The umbilical trocar was then upsized to a 12 mm under direct visua lization without evidence of complication. Patient was positioned head up, right side up position. Ratcheted grasper was used to grasp the patient's gallbladder and placed toward patient's right shoul jessy. Dissection continued down to remove omental attachments off the anterior surface of the gallbla dder. An umbilical hernia was noted at the infraumbilical position, which was not in the surgical fi eld at this point. I then continued dissection down to expose 2 structures identified as both the cy stic duct and cystic artery. The critical view of safety was obtained. At this point, I performed i ndocyanine green cholangiography showing the confluence of cystic duct, common duct junction adequate ly far from the surgical site. I then placed double titanium clips on the proximal side and singly o n distal side of both the cystic duct and cystic artery. I then ligated these structures using Endo Keke and the gallbladder was removed off the hepatic fossa without evidence of complication using e lectrocautery. The gallbladder was then placed in the EndoCatch bag, removed through the umbilical t rocar, sent off for pathologic examination. The abdomen was reinsufflated at this point. The area w as copiously irrigated and suctioned out to completely dry. All effluent was completely clear. Indo cyanine green cholangiography confirmed no leakage of bile at this point. No hemostatic measures wer e required. The patient was positioned back in neutral position. 12 mm trocar site was closed using a Joseph-Ilana suture passer with an 0 Vicryl in an interrupted fashion with good approximation o f tissues. The abdomen was completely desufflated under direct vision without evidence of complicati on. Remainder of trocars were removed. All skin incisions were then copiously irrigated and closed with a 4-0 Monocryl in a running fashion. Dermabond was placed over top. The patient tolerated the procedure without evidence of complication and transferred to PACU in good condition. All counts wer e correct at the end of the case. BECKIE/ROSALIA Voice ID: [id number] Report ID: [id number]
--- NOTE | 2023-11-07 13:44 | EKG ---
Test Date: 2023-11-06 Test Time: 11:06:16 Concrete Inspector: Farhan MEASUREMENT RESULTS: Intervals: Rate: 66 CA: 124 QRSD: 88 QT: 384 QTc: 402 Screven: P: 55 CA: 124 QRS: 46 T: 32 INTERPRETIVE STATEMENTS: Normal sinus rhythm Normal ECG Compared to ECG 07/03/2019 10:03:51 Sinus bradycardia no longer present Electronically Signed On 11-07-23 13:40:16 CANNONEER by Danie Klein
== END 2023-11-06 16:35 | disposition home or self-care (01) ==
LOC: OR 10:44
PROVIDERS: ATTEND Surgery
PROC: BF50200 Other Imaging of Bile Ducts using Fluorescing Agent, Indocyanine Green Dye, Intraoperative (ICD-10-PCS; 2023-11-06)
PROC: 0FT44ZZ Resection of Gallbladder, Percutaneous Endoscopic Approach (ICD-10-PCS; principal; 2023-11-06 12:30)
DX: K80.10 Calculus of gallbladder with chronic cholecystitis without obstruction (principal); K42.9 Umbilical hernia without obstruction or gangrene
CPT/HCPCS: 93005; 85025; 80048; 36415; 81025; 88304; 47563; J2704; J1100; J2710; J1200; J2250; J3010 ×2; J1170; J0694; J2405; J7120

== ENCOUNTER 2025-01-07 23:37 | Emergency (ER) | payer OTHER ==
--- OUTSIDE RECORDS SUMMARY | 2025-01-07 23:41 | XMS REPORT | Continuity of Care Document ---
Author Name Unknown Address [address] [place] [address] [facility] thconnect Address [address] [place] [address] Care Team Providers Care Brake [employer]r [employer] Name Role Phone PCP, PATIENT DOES NOT HAVE A Primary Care Physic isaac Unavailable ZENA KANG Attending Clinician Unavailable KEATON CARRASCO Attending Clinician Unavailable CHACHA GRECO Attending Clinician Unavailab MAGNUS Aleman Attending Clinician Unavailable Jocelyne King Attending Clinician [phone] JOCELYNE BHANDARI Attending Clinician Unavailable Doctor Unassigned, [place] Attending Clinician U navailable CORKY CHAMBERS Attending Clinician Unavailable Patti Garcia MD Attending Clinician [phone] Corky Chambers MD Attending Clinician [phone] Penny MONROY Attending Clinician Unavailable Penny Lemon Attending Clinician [phone] PATTI GARCIA Admitting Clinician Unavailab Penny Michaels Admitting Clinician Unavailable Payers Payer Name Policy Type Policy Number Effective Date Expirati on Date Source [employer]: 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 ON STAND 9 [id number] 2022 00:00:00 [employer] OF NETWORK [id number] 2022 00:00:00 [facility] [id number] 2022 00:00:00 Problems Condition Name Condition Details Condition Category Status Onset Date Resolution Date Last Treatment Date Treating Clinician Comments Source Calculus of gallbladde r without cholecysti tis without obstructio n Calculus of gallbladde r without cholecysti tis without obstructio n Disease Active 2022-11 00:00: 00 [facility] care and examinatio n of lactating mother care and examinatio n of lactating mother Disease Active 2014-11 00:00: 00 [facility] Anemia of mother in , condition Anemia of mother in , condition Disease Active 2014-11 00:00: 00 [facility] Tubal ligation status Tubal ligation status Disease Active 2014-11 00:00: 00 [facility] Allergies, Adverse Reactions, Alerts Allergy Name Allergy Type Status Severity Reaction(s) Onset Date Inactive Date Treating Clinician Comments Source NO KNOWN ALLERGIE S Drug Class Active [facility] Social History Social Habit Start Date Stop Date Quantity Comments Source Sexual orientation Penny niesha Limon - External Alcohol intake 2023-10-11 00:00:00 2023-10-11 00:00:00 Lifetime non-drinker (finding) Saloni Limon - External History of Social function 2023-10-11 00:00:00 2023-10-11 00:00:00 Saloni Limon - External Tobacco use and exposure 2015-09-04 00:00:00 2015-09-04 00:00:00 Smokeless tobacco non-user [facility] Sex Assigned At 1995 00:00:00 1995 00:00:00 Saloni Limon - External Smoking Status Start Date Stop Date Source Never smoked tobacco Saloni Limon - External Medications Ordered Medication Name Filled Medication Name Start Date Stop Date Current Medication? Ordering Clinician Indication Dosage Frequency Signature (SIG) Comments Components Source NaCl 0.9% (NS) bolus infusion 1,000 mL 2022-11 02:15: 00 10-04 03:31 :00 No 1000mL at 999 mL/hr, 1,000 mL, IV Infusion, ONCE, 1 dose, On Mon10/03/23 at 2015, [facility] cefTRIAXone (ROCEPHIN) 1,000 mg in NaCl 0.9% (NS) 100 mL MINI-BAG 2022-11 01:00: 00 10-04 02:06 :00 No 1000mg 1,000 mg, IV Piggyback, ONCE, 1 dose, On Mon10/03/23 at 1900, Administer over 30 Minutes, 100 mL
Reas on for Anti-Infec tive: Documented Infection< br>Documen rachid Infection Site: Urine
D uration of Therapy: Other (see Comments) [facility] iohexol (OMNIPAQUE 350 BULK-500 mL) injection 150 mL 2022-11 00:00: 00 10-04 00:00 :00 No [id number] 150mL 150 mL, Intravenou s, ONCE, 1 dose, On Mon10/03/23 at 1800, Routine [facility] NaCl 0.9% (NS) bolus infusion 1,000 mL 2022-11 22:15: 00 10-04 00:33 :00 No 1000mL at 999 mL/hr, 1,000 mL, IV Infusion, ONCE, 1 dose, On Mon10/03/23 at 1615, [facility] ondansetron (ZOFRAN (PF)) injection 4 mg 2022-11 21:30: 00 10-03 23:14 :00 No 4mg 4 mg, Slow IV Push, ONCE, 1 dose, On Mon10/03/23 [facility] 1530[facility] ([facility] mg/mL) injection 4 mg 2022-11 21:30: 00 10-03 23:14 :00 No 4mg 4 mg, Slow IV Push, ONCE, 1 dose, On Mon10/03/23 at 1530, STAT [facility] cephALEXin 500 mg capsule 2022-11 00:00: 00 10-11 05:59 :00 No [id number] 500mg Take 1 capsule by mouth 4 (four) times daily for 7 days. [facility] famotidine (PEPCID (PF)) injection 20 mg 2022-11 17:30: 00 09-29 17:28 :00 No 20mg 20 mg, Slow IV Push, ONCE, 1 dose, On Mon09/29/23 at 1230, JEANMARIE [facility] NaCl 0.9% (NS) bolus infusion 1,000 mL 2022-11 16:00: 00 09-29 16:30 :00 No 1000mL at 999 mL/hr, 1,000 mL, IV Infusion, ONCE, 1 dose, On Mon09/29/23 at 1100, STAT [facility] ondansetron (ZOFRAN (PF)) injection 4 mg 2022-11 16:00: 00 09-29 15:02 :00 No 4mg 4 mg, Slow IV Push, ONCE, 1 dose, On Mon09/29/23 at 1100, JEANMARIE [facility] morpHINE (4 mg/mL) injection 4 mg 2022-11 16:00: 00 09-29 15:02 :00 No 4mg 4 mg, Slow IV Push, ONCE, 1 dose, On Mon09/29/23 at 1100, STAT [facility] Ondansetron (ZOFRAN) 4 MG oral TABLET DISPERSIBLE 2022-11 00:00: 00 10-11 00:00 :00 No DISSOLVE 1 TABLET IN MOUTH EVERY 8 HOURS NEEDED FOR NAUSEA AND VOMITING Saloni Troy l Acetaminoph en Extra Strength 500 MG oral Tablet 07-28 00:00: 00 Yes TAKE 1 TABLET BY MOUTH EVERY 8 HOURS NEEDED FOR MILD PAIN OR MODERATE PAIN FOR UP TO 7 DAYS Saloni Carrizales Externa l Ibuprofen (MOTRIN) 800 MG oral Tablet 07-28 00:00: 00 Yes TAKE 1 TABLET BY MOUTH EVERY 8 HOURS - IF NEEDED FOR MILD PAIN FOR UP TO 7 DAYS Saloni Limon - Externa l HYDROcodone -Acetaminop hen 7.5-325 MG oral Tablet 07-28 00:00: 00 10-11 00:00 :00 No TAKE 1 TABLET BY MOUTH EVERY 8 HOURS NEEDED FOR SEVERE PAIN FOR UP TO 4 DAYS Saloni Limon - Externa l Immunizations Ordered Immunization Name Filled Immunization Name Date Status Comments Source Influenza Virus Vaccine Quad IM 3+ YRS Unknown Completed [facility] TDAP Unknown Completed [facility] Influenza Virus Vaccine Quad IM 3+ YRS Unknown Completed [facility] TDAP Unknown Completed [facility] Influenza Virus Vaccine Quad IM 3+ YRS Unknown Completed [facility] TDAP Unknown Completed [facility] Influenza Virus Vaccine Quad IM 3+ YRS Unknown Completed [facility] TDAP Unknown Completed [facility] Influenza Virus Vaccine Quad IM 3+ YRS Unknown Completed [facility] TDAP Unknown Completed [facility] Influenza Virus Vaccine, No Preserv, age 6 months and up Unknown Completed Saloni brooksbobird - External Tdap- (Boostrix, Adacel) Unknown Completed Saloni Limon - External Vital Signs Vital Name Observation Time Observation Value Comments S ource Systolic blood pressure 2023-10-11 21:17:00 100 mm[Hg] Saloni Seybo ld - External Diastolic blood pressure 2023-10-11 21:17:00 58 mm[Hg] Saloni Hollowayo ld - External Heart rate 2023-10-11 21:17:00 97 /min Kristopher Limon - External Body temperature 2023-10-11 21:17:00 37.06 Jamila Saloni Akhtarybold - External Respiratory rate 2023-10-11 21:17:00 14 /min Saloni Akhtarybold - External Body height 2023-10-11 21:17:00 157.5 cm Inna brooks Seybold - External Body weight 2023-10-11 21:17:00 63.504 kg Inna brooks Seybold - External BMI 2023-10-11 21:17:00 25.61 kg/m2 Inna brooks Seybold - External Systolic blood pressure 2023-10-05 19:16:00 122 mm[Hg] [facility] Diastolic blood pressure 2023-10-05 19:16:00 84 mm[Hg] [facility] Heart rate 2023-10-05 19:16:00 69 /min Haye [facility] Body temperature 2023-10-05 19:16:00 37.06 Jamila [facility] Body height 2023-10-05 19:16:00 157.5 cm [facility] Body weight 2023-10-05 19:16:00 66.769 kg [facility] BMI 2023-10-05 19:16:00 26.92 kg/m2 [facility] Oxygen saturation in Arterial blood by Pulse oximetry 2023-10-05 19:16:00 100 /min [facility] Systolic blood pressure 2023-10-04 02:40:00 146 mm[Hg] [facility] Diastolic blood pressure 2023-10-04 02:40:00 78 mm[Hg] [facility] Heart rate 2023-10-04 02:40:00 65 /min Unive [facility] Body temperature 2023-10-04 02:40:00 36.94 Jamila [facility] Oxygen saturation in Arterial blood by Pulse oximetry 2023-10-04 02:40:00 98 /min [facility] Respiratory rate 2023-10-04 00:00:00 16 /min [facility] BMI 2023-10-03 20:05:00 26.89 kg/m2 [facility] Body height 2023-10-03 20:05:00 157.5 cm [facility] Body weight 2023-10-03 20:05:00 66.679 kg [facility] Systolic blood pressure 2023-09-29 17:00:00 139 mm[Hg] [facility] Diastolic blood pressure 2023-09-29 17:00:00 95 mm[Hg] [facility] Heart rate 2023-09-29 17:00:00 90 [facility] Respiratory rate 2023-09-29 17:00:00 16 /min [facility] Oxygen saturation in Arterial blood by Pulse oximetry 2023-09-29 17:00:00 98 /min [facility] Body temperature 2023-09-29 14:22:02 38 Jamila [facility] Body height 2023-09-29 14:18:00 157.5 cm [facility] Body weight 2023-09-29 14:18:00 68.04 kg [facility] BMI 2023-09-29 14:18:00 27.44 kg/m2 [facility] Procedures Procedure Date / Time Performed Performing Clinician Source ASSIGNMENT OF BENEFITS 2023-10-05 18:53:08 Docto r Unassigned, [place] [facility] CT ABDOMEN PELVIS W CONTRAST 2023-10-03 23:12:40 Patti Garcia [facility] LIPASE 2023-10-03 22:07:00 Patti Garcia [facility] TEST, SERUM 2023-10-03 22:07:00 Patti Garcia [facility] HEPATIC FUNCTION PANEL (11493) (ALB,T.PRO,BILI T,BU/BC,ALT,AST,ALK PHOS) 2023-10-03 22:07:00 Patti Garcia [facility] BASIC METABOLIC PANEL (NA, K, CL, CO2, GLUCOSE, BUN, CREATININE, CA) 2023-10-03 22:07:00 Patti Garcia [facility] CBC WITH DIFF 2023-10-03 22:07:00 Patti Garcia U [facility] PROTHROMBIN TIME / INR 2023-10-03 22:07:00 Patti Garcia [facility] ACTIVATED PARTIAL THRMPLAS SAM 2023-10-03 22:07:00 Patti Garcia [facility] URINALYSIS 2023-10-03 22:07:00 Patti Garcia [facility] ASSIGNMENT OF BENEFITS 2023-10-03 20:55:42 Docto r Unassigned, [place] [facility] CONSENT/REFUSAL FOR DIAGNOSIS AND TREATMENT 2023-10-03 19:47:50 Doctor Unassigned, [place] [facility] US GALL BLADDER 2023-09-29 15:50:00 Penny Monroy [facility] LIPASE 2023-09-29 14:38:00 Penny Monroy Un[facility] MAGNESIUM 2023-09-29 14:38:00 Penny Monroy [facility] COMP. METABOLIC PANEL ([id number]) 2023-09-29 14:38:00 Penny Monroy [facility] CBC WITH DIFF 2023-09-29 14:38:00 Penny Monroy [facility] URINALYSIS 2023-09-29 14:31:00 Penny Monroy [facility] POCT TEST 2023-09-29 14:30:00 Marilee Monet ra [facility] CONSENT/REFUSAL FOR DIAGNOSIS AND TREATMENT 2023-09-29 14:14:10 Doctor Unassigned, [place] [facility] Encounters Start Date/Time End Date/Time Encounter Type Admission Type Attending [facility] Facility Care Department Encounter ID Source 2024-02-26 16:15:00 2024-02-26 16:15:00 Outpatient ZENA KANG [id number] [facility] 2024-01-10 10:40:00 2024-01-10 10:40:00 Outpatient KEATON CARRASCO [id number] [facility] 2023-11-01 00:00:00 2023-11-01 00:00:00 Outpatient SALONI MICHEAL [id number] [facility] 2023-10-11 15:30:00 2023-10-11 15:30:00 Outpatient CHACHA GRECO [id number] [facility] 2023-10-11 00:00:00 2023-10-11 00:00:00 Outpatient CHACHA GRECO [id number] [facility] 2023-10-11 00:00:00 2023-10-11 00:00:00 Outpatient SALONI MICHAEL [id number] [facility] 2023-10-09 13:15:00 2023-10-09 13:15:00 Outpatient MAGNUS WHALEN [facility] [id number] [facility]23-10-06 00:00:00 2023-10-06 00:00:00 Telephone Jocelyne Bhandari [facility] 1.20.114 [id number] [facility] 2023-10-05 13:00:00 2023-10-05 13:40:53 Office Visit Jocelyne Bhandari [facility] 1.20.114 [id number] [facility] 2023-10-05 13:00:00 2023-10-05 13:40:53 Outpatient R JOCELYNE BHANDARI [facility] [id number] [facility] 2023-10-05 00:00:00 2023-10-05 00:00:00 Orders Only Doctor Unassigned, [place] [facility] 1.0.114 [id number] [facility] 2023-10-03 14:06:00 2023-10-03 21:33:00 Emergency X CORKY CHAMBERS [facility] ERT [id number] [facility] 2023-10-03 14:06:00 2023-10-03 21:33:00 Emergency [place] , Corky Buck [facility] 1..114 [id number] [facility] 2023-09-29 09:20:00 2023-09-29 12:38:00 Emergency X Penny MONROY [facility] ERT [id number] [facility] 2023-09-29 09:20:00 2023-09-29 12:38:00 Emergency Penny Monroy [facility] 1..114 [id number] [id number] [facility] Results Test Description Test Time Test Comments Results Result Co mments Source [facility]
[2025-01-08 00:38] LABS: SARS-CoV-2 Antigen CONTROL BLUE LINE VIS/BG OK; SARS-CoV-2 Antigen Rapid Res Positive (Negative)
--- NOTE | 2025-01-08 00:40 | EDPHYS ---
Physician Documentation [facility] Name: Cherry Mar Age: 29 yrs Sex: Female : 1995 Arrival Date: 01/07/2025 Time: 23:37 Bed 16 Private MD: ED Physician Julio Barlow HPI: 01/08 00:17 This 29 yrs old Black Female presents to ER via Ambulatory with complaints of Flu kb Symptoms, Chest Congestion, Back Pain. 00:17 Pt is a 29 year old female who presents for cough, congestion, fever, chills and sore kb throat that started 3 days ago. States she developed chest pain with cough today so she came in for evaluation. Denies shortness of breath, pain at rest. . 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 - Infectious Disease History:: Denies. - Social history:: Smoking status: Patient reports the use of cigarette tobacco products, denies chronic smoking, but will smoke occasionally. ROS: 23:51 Constitutional: As per HPI kb Exam: 23:51 Constitutional: This is a well developed, well nourished patient who is awake, alert, kb and in no acute distress. Head/Face: Normocephalic, atraumatic. ENT: Moist Mucous membranes Cardiovascular: Regular rate Respiratory: Respirations even and unlabored. No increased work of breathing. Talking in full sentences Abdomen/GI: Soft, non-tender. No distention Skin: Warm, dry with normal turgor. Normal color. MS/ Extremity: Pulses equal, no cyanosis. Neurovascular intact. Full, normal range of motion. Neuro: Awake and alert, GCS 15, oriented to person, place, time, and situation. Vital Signs: 23:49 BP 129 / 81; Pulse 87; Resp 17; Temp 98.7; Pulse Ox 98% ; Weight 72.57 kg; Height 5 ft. me1 2 in. ; Pain 5/10; 01/08 00:18 BP 118 / 69; Pulse 85; Resp 20; Temp 98; Pulse Ox 98% on R/A; aa10 00:59 BP 113 / 74; Pulse 78; Resp 20; Temp 98.6; Pulse Ox 99% on R/A; aa10 01/07 23:49 Body Mass Index 29.26 (72.57 kg, 157.48 cm) me1 01/07 23:49 Pain Scale: [facility] MDM: 01/07 23:43 Medical Screening Exam initiated kb 01/08 00:17 Data reviewed: vital signs, nurses notes. kb 00:18 Differential diagnosis: flu, covid, strep, uri, pneumonia. kb 00:18 ED course: Chest x-ray independently reviewed and interpreted by me, shows no acute ec2 intrathoracic process. Pending swabs and will discharge home.. 00:39 ED course: Patient is COVID-positive. Will discharge home. Return precautions given.. ec2 01/07 23:48 Order name: Flu; Complete Time: 00:38 kb 01/07 23:48 Order name: Strep; Complete Time: 00:38 kb 01/07 23:48 Order name: SARS-COV-2 Antigen Rapid; Complete Time: 00:39 kb 01/08 00:40 Order name: Throat Culture EDIA 01/07 23:48 Order name: Chest Single View XRAY; Complete Time: 13:34 kb Administered Medications: No medications were administered Disposition: 00:39 I agree with the assessment and plan of care. ec2 Disposition Summary: 01/08/25 00:39 Discharge Ordered Notes: Location: Home ec2 Condition: Stable ec2 Diagnosis - Viral infection, unspecified ec2 - SARS-associated coronavirus as the cause of diseases classified elsewhere ec2 Followup: ec2 - With: Private Physician - When: - Reason: Re-evaluation by your physician Discharge Instructions: - Discharge Summary Sheet ec2 - Viral Illness, Adult ec2 Forms: - Work release form ec2 - Medication Reconciliation Form ec2 - Antibiotic Education ec2 - Prescription Opioid Use ec2 - Patient Portal Instructions ec2 - Leadership Thank You Letter ec2 Prescriptions: - Tessalon Perles 100 mg Oral Capsule - take 1 capsule ORAL route every 8 hours As needed; 15 capsule; Refills: 0, ec2 Product Selection Permitted Signatures: Dispatcher [employer] Candida Partida, STORMY SOSA-Dede Marquez RN RN me1 Julio Barlow MD MD ec2 Corrections: (The following items were deleted from the chart) 01/07 23:48 23:48 Influenza Screen (A \T\ B)+BA.LAB.BRZ ordered. EDMS EDMS 23:48 23:48 Group A Streptococcus Rapid Sc+BA.LAB.BRZ ordered. EDMS EDMS 23:48 23:48 SARS-COV-2 Antigen Rapid+I.LAB.BRZ ordered. EDMS EDMS 23:48 23:48 Chest Single View+RAD.RAD.BRZ ordered. EDMS EDMS
--- NOTE | 2025-01-08 00:40 | ER ---
Nurse's Notes [facility] Name: Cherry Mar Age: 29 yrs Sex: Female : 1995 Arrival Date: 01/07/2025 Time: 23:37 Bed 16 Private MD: Diagnosis: Viral infection, unspecified;SARS-associated coronavirus as the cause of diseases classified elsewhere Presentation: 01/07 23:49 Chief complaint: Patient states: cough, congestion, sore throat, fever, aches, chills me1 that started on Monday. Today started to have some pain with cough in the chest and to upper back. 04/05. Coronavirus screen: Vaccine status: Patient reports being unvaccinated. Ebola Screen: No symptoms or risks identified at this time. Initial Sepsis Screen: Does the patient meet any 2 criteria? No. Patient's initial sepsis screen is negative. Does the patient have a suspected source of infection? No. Patient's initial sepsis screen is negative. Risk Assessment: Do you want to hurt yourself or someone else? Patient reports no desire to harm self or others. Onset of symptoms was January 05, 2025. 23:49 Method Of Arrival: Ambulatory [facility] 23:49 Acuity: RUFUS 4 me1 Triage Assessment: 01/08 00:16 General: Appears in no apparent distress. comfortable, Behavior is calm, cooperative, aa10 appropriate for age, Smells of. Pain: Complains of pain in back Pain does not radiate. Pain currently is 6 out of 10 on a pain scale. Quality of pain is described as aching, Pain began gradually, Is continuous, Alleviated by medications, rest, Aggravated by exercise, increased activity. Musculoskeletal: Circulation, motion, and sensation intact. 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 - Infectious Disease History:: Denies. - Social history:: Smoking status: Patient reports the use of cigarette tobacco products, denies chronic smoking, but will smoke occasionally. Screenin/12 00:20 [facility] ED Fall Risk Assessment (Adult) History of falling in the last 3 months, aa10 including since admission No falls in past 3 months (0 pts) Confusion or Disorientation No (0 pts) Intoxicated or Sedated No (0 pts) Impaired Gait No (0 pts) Mobility Assist Device Used No (0 pt) Altered Elimination No (0 pt) Score/Fall Risk Level 0 - 2 = Low Risk Oriented to surroundings, Maintained a safe environment, Educated pt \T\ family on fall prevention, incl call for assistance when getting out of bed, Assessed \T\ reinforced patient's understanding of fall precautions, Provided non-skid footwear, Hourly rounding (assess needs \T\ fall precautionary measures) done. Abuse screen: Denies threats or abuse. Denies injuries from another. Nutritional screening: No deficits noted. Tuberculosis screening: No symptoms or risk factors identified. Assessment: 00:18 General: Appears in no apparent distress. comfortable, well groomed, Behavior is calm, aa10 cooperative, appropriate for age. Neuro: No deficits noted. Level of Consciousness is awake, alert, obeys commands, Oriented to person, place, time, situation, Appropriate for age Ski Topper are equal bilaterally Moves all extremities. Full function Gait is steady, Speech is normal. Cardiovascular: No deficits noted. Capillary refill < 3 seconds Respiratory: No deficits noted. Airway is patent. GI: No deficits noted. Abdomen is flat, non-distended. 00:59 Reassessment: Patient appears in no apparent distress at this time. No changes from aa10 previously documented assessment. Patient and/or family updated on plan of care and expected duration. Pain level reassessed. Patient is alert, oriented x 3, equal unlabored respirations, skin warm/dry/pink. 01:23 Reassessment: Patient appears in no apparent distress at this time. No changes from aa10 previously documented assessment. Patient and/or family updated on plan of care and expected duration. Pain level reassessed. Patient is alert, oriented x 3, equal unlabored respirations, skin warm/dry/pink. Vital Signs: 01/07 23:49 BP 129 / 81; Pulse 87; Resp 17; Temp 98.7; Pulse Ox 98% ; Weight 72.57 kg; Height 5 ft. me1 2 in. ; Pain /10; 01/08 00:18 BP 118 / 69; Pulse 85; Resp 20; Temp 98; Pulse Ox 98% on R/A; aa10 00:59 BP 113 / 74; Pulse 78; Resp 20; Temp 98.6; Pulse Ox 99% on R/A; aa10 01/07 23:49 Body Mass Index 29.26 (72.57 kg, 157.48 cm) ct1 01/07 23:49 Pain Scale: Adult [facility] ED Course: 01/07 23:42 Patient arrived in ED. 2 23:43 Cand[facility] Stringer [facility]-C [facility] kb 23:43 Julio Barlow MD is Attending Physician. kb 23:51 Triage completed. [facility] 23:51 Arm band placed on Patient placed in an exam room. [facility] 01/08 00:20 No provider procedures requiring assistance completed. Patient did not have IV access aa10 during this emergency room visit. 00:21 Patient has correct armband on for positive identification. Allergy band placed. Fall aa10 risk band placed. Placed in gown. Bed in low position. Call light in reach. Side rails up X2. Provided Education on: about plan of care. 00:22 Chest Single View XRAY In Process Unspecified. EDMS 00:28 Flu Sent. aa10 00:28 Strep Sent. aa10 00:28 SARS-COV-2 Antigen Rapid Sent. aa10 01:23 Throat Culture Sent. aa10 Administered Medications: No medications were administered Medication: 00:20 VIS not applicable for this client. aa10 Outcome: 00:39 Discharge ordered by . ec2 00:59 Discharged to home ambulatory, aa10 00:59 Condition: good 00:59 Discharge instructions given to patient, Instructed on discharge instructions, 01:26 Patient left the ED. aa10 Signatures: Dispatcher [employer] EDWV Candida Stringer FNP-C FNP-Ckb Eddleman, Michelle, RN RN ct1 Julio Barlow MD MD ec2 Mitchell, Ginger [facility] Dot Meng RN RN aa10
--- NOTE | 2025-01-08 05:54 | RAD REPORT ---
EXAM DESCRIPTION: Chest Single View CLINICAL HISTORY: Chest pain;Cough COMPARISON: None TECHNIQUE: Single AP view of the chest. FINDINGS: Lung volumes adequate. Cardiac silhouette is normal in size. No pneumothorax. No large pleural effusion. No focal consolidation. No acute bony finding. IMPRESSION: No evidence of acute cardiopulmonary disease. Electronically signed by: Brittanie Burns MD 01/08/2025 01:07 AM [facility] Z9 Due to temporary technical issues with the PACS/[employer] reporting system, reports are being lacey d by the in-house radiologist without review as a courtesy to ensure prompt reporting the interpreting radiologist is fully responsible for the content of the report. Transcribed Date/Time: 01/08/2025 5:54 AM
[2025-01-08 11:13] VITALS: BP 113/74; TEMP 98.6; O2SAT 99
== END 2025-01-08 01:26 | disposition home or self-care (01) ==
LOC: ER 23:37
DX: U07.1 COVID-19 (principal); B34.9 Viral infection, unspecified; F17.210 Nicotine dependence, cigarettes, uncomplicated
CPT/HCPCS: 36415; 71045; 87070; 87081; 87804; 87811